=== PATIENT | female | born 1960 | race Caucasian/White ===

== ENCOUNTER 2022-07-26 15:38 | Outpatient (RCR) | payer OTHER, SELFPAY ==
--- NOTE | 2022-07-26 17:18 | MHC.PT.EP ---
[facility] [place] Office [place] Office [place] Office [address] Jenni Maldonado [address] [phone] F: [phone] F: [phone] F: [phone] F: [phone] Physical Therapy Plan of Care Date of Evaluation: Date of Surgery: Diagnosis: RIGHT shoulder pain (MD Dx) RIGHT shoulder impingement (supraspinatus tendon) (PT Dx) Assessment: Patient is a 62 y.o. female who is referred to PT by Mi Zamora MD, with Dx of right shoulder pain. PT diagnosis is right shoulder impingement (supraspinatus tendon). Patient impairments include pain, poor posture, limited ROM, weakness. Patient current functional limitations are pulling up pants, lifting cat litter/groceries, reaching behind back. Patient will benefit from skilled PT to address aforementioned impairments and functional limitations to meet established goals. Frequency and Duration: The patient will be seen 1x/week for 4 weeks Short Term Goals: 2 weeks Patient demonstrates consistency and independence with HEP to self manage symptoms. Mcfp Goals: 4 weeks Patient presents with increased right shoulder flexion 175 degrees to reach to high cabinets. 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 Treatment Plan: Modalities to reduce pain, spasms and effusion. Manual therapy to restore motion and function. Therapeutic exercise to improve strength and flexibility. Neuromuscular re-education for posture and balance. Therapeutic activities to return to functional activities of daily living. Electronically signed by: Jim Wray, PT, DPT Please sign and return to therapist. Thank you for your referral.
--- NOTE | 2022-09-20 15:59 | MHC.PT.DC ---
[facility] [place] Office [place] Office [place] Office [address] Eddi Maldonado 140 [facility] [phone] F: [phone] F: [phone] F: [phone] F: [phone] Physical Therapy Discharge Report Diagnosis: RIGHT shoulder pain (MD Dx) RIGHT shoulder impingement (supraspinatus tendon) (PT Dx) Date of Surgery: Date of Evaluation: 07/26/22 Date of Discharge: 09/20/22 Treatments to Date: 1 Cancellations to Date: No Shows to Date: Discharge Status: Visit Non-compliance Discharge Summary: Sudha did not schedule or attend any FUP visits after initial evaluation. Therefore I cannot determine effectiveness of PT interventions on patient condition at this time. She is discharged from PT. Electronically signed by: Jim Wray, PT, DPT Please sign and return to therapist. Thank you for your referral.
== END 2022-09-20 16:00 | disposition home or self-care (01) ==
LOC: HO.PT 15:38
PROVIDERS: PCP Internal Medicine; Visit Provider Internal Medicine
DX: S49.91XD Unspecified injury of right shoulder and upper arm, subsequent encounter (principal)
CPT/HCPCS: 97110; 97161

== ENCOUNTER 2022-11-03 11:11 | Outpatient (AMB) | payer OTHER, SELFPAY ==
[2022-11-03 11:11] VITALS: BP 136/82; PULSE 90; O2SAT 97; BMI 38.6
--- NOTE | 2022-11-03 11:11 | MHC.PC.OV ---
Vital Signs 11/03/22 11:11 Height 5 ft 3 in Weight 218 lb BMI 38.6 BP 136/82 Blood Pressure Location Rt brachial Position Sitting Pulse 90 Pulse Source Pulse Oximeter Pulse Oximetry (%) 97 Oxygen Delivery Method Room Air Intake Visit Reasons: 3 month follow up Intake Note: Pt is here today for 3 months follow up visit. Allergies prochlorperazine [From Compazine] Allergy (Unknown, Verified 11/03/22 11:11) muscle reaction Medication List - Last Reconciled 11/03/22 by Mi Zamora MD dulaglutide (Trulicity) 1.5 mg (0.5 mL) subcut QWEEK flash glucose sensor (FreeStyle Marky 14 Day Sensor kit) As directed fluoxetine 20 mg PO DAILY lisinopril 20 mg PO DAILY metformin ER 1,000 mg PO BID naratriptan take 1 tab at onset of headache; if no relief may repeat 1 tab after at least 4 hrs; max = 2 tabs/24 hrs PO valacyclovir 500 mg PO BID Tobacco use date assessed: 11/03/22 Dental Screening Dental Screen Date: 11/03/22 Did you have a dental visit in the last 12 months?: Yes Did you have a dental problem in the last 6 months where you did not have access to dental care?: No Was dental information given to patient?: Patient has dentist HPI 3 month follow up HPI Details Patient presents for follow-up of type 2 diabetes and hypertension. Patient started taking Trulicity 2 weeks ago and reports having some nausea and increased heart burn. She has not been monitoring her blood glucose. Patient has been taking lisinopril for hypertension. Patient's older sister who lives in [facility] is dying from ovarian cancer. 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 How often do you have a drink containing alcohol?: Monthly or less 2. How many drinks containing alcohol do you have on a typical day when you are drinking?: 1 or 2 3. How often do you have six or more drinks on one occasion?: Never Total Score: 1 NASIMA-7 AMB Questionnaire NASIMA-7 Date NASIMA - 7 assessed: 06/25/22 Source: Developed by Drs. Marbin Cherry, Judy Van, Elton Li and colleagues, with an educational ben from [employer]. Review of Systems Const All systems reviewed & are unremarkable except as noted in HPI and below Reports no additional complaints Eyes Reports no additional complaints ENT Reports no additional complaints Card Reports no additional complaints Resp Reports no additional complaints GI Reports no additional complaints Physical exam (Primary Care) Vital Signs: Last Vital Signs Pulse 90 11/03/22 11:11 BP 136/82 11/03/22 11:11 Pulse Ox 97 11/03/22 11:11 Oxygen Delivery Method Room Air 11/03/22 11:11 BMI result Body Mass Index 38.6 Tobacco/Smoking Status: Tobacco use Status Tobacco use date assessed 11/03/22 11/03/22 11:12 Patient Tobacco Use Status Never used Tobacco 11/03/22 11:12 e-Cigarette/Vaping Use Never Used 11/03/22 11:12 Thrive Assessment: Date of Thrive Assessment Date Thrive assessed 06/25/22 11/03/22 11:12 Const General: no acute distress HENMT Face and sinus: Yes normal facial exam Eyes General: appearance normal, both eyes and all related structures Resp Effort & Inspection: normal respiratory effort Auscultation: clear to auscultation bilaterally Cardio Rhythm: regular rhythm Heart sounds: S1 normal heart sound present and S2 normal heart sound present GI Inspection: Yes normal to inspection Palpation (GI): Soft to palpation Percussion: Yes normal to percussion Auscultation: normal bowel sounds Assessment and Plan Assessment & Plan (1) HTN (hypertension): Code(s): I10 - Essential (primary) hypertension Plan: Continue lisinopril (2) Diabetes mellitus type 2 in obese: Code(s): E11.69 - Type 2 diabetes mellitus with other specified complication; E66.9 - Obesity, unspecified Plan: Patient will return for fasting labs including A1c. ADA diet regular physical activity discussed with the patient she will continue Trulicity and metformin for now. If nausea and GERD symptoms persist Trulicity dose will be decreased to 0.75 mg weekly. f.u in 3 months Orders: Orders Comprehensive Ophelia. Panel Fast Today - Type 2 diabetes mellitus with other specified complication, E66.9 - Obesity, unspecified, I10 - Essential (primary) hypertension Hemoglobin A1c Today - Type 2 diabetes mellitus with other specified complication, E66.9 - Obesity, unspecified, I10 - Essential (primary) hypertension Lipid Panel Today - Type 2 diabetes mellitus with other specified complication, E66.9 - Obesity, unspecified, I10 - Essential (primary) hypertension Microalbumin, Random (w Creat) Today - Type 2 diabetes mellitus with other specified complication, E66.9 - Obesity, unspecified, I10 - Essential (primary) hypertension Complete Blood Count Auto Diff Today - Type 2 diabetes mellitus with other specified complication, E66.9 - Obesity, unspecified, I10 - Essential (primary) hypertension TSH reflex Free T4 Today - Type 2 diabetes mellitus with other specified complication, E66.9 - Obesity, unspecified, I10 - Essential (primary) hypertension Comprehensive Ophelia. Panel Fast 3 Months - Type 2 diabetes mellitus with other specified complication, E66.9 - Obesity, unspecified, I10 - Essential (primary) hypertension Hemoglobin A1c 3 Months - Type 2 diabetes mellitus with other specified complication, E66.9 - Obesity, unspecified, I10 - Essential (primary) hypertension Microalbumin, Random (w Creat) 3 Months - Type 2 diabetes mellitus with other specified complication, E66.9 - Obesity, unspecified, I10 - Essential (primary) hypertension Coding Level of Care Code Est Pt Level 3 (82877) Diagnoses HTN (hypertension) I10 Diabetes mellitus type 2 in obese ; E66.9
== END 2022-11-03 12:03 | disposition home or self-care (01) ==
PROVIDERS: PCP Internal Medicine; Visit Provider Internal Medicine
DX: I10 Essential (primary) hypertension (principal); E11.69 Type 2 diabetes mellitus with other specified complication; E66.9 Obesity, unspecified; Z68.38 Body mass index [BMI] 38.0-38.9, adult
CPT/HCPCS: 99213

== ENCOUNTER 2023-10-26 11:11 | Outpatient (AMB) | payer OTHER, SELFPAY ==
--- NOTE | 2023-10-26 11:26 | MHC.PC.OV ---
Vital Signs 10/26/23 11:27 Height 5 ft 3 in Weight 222 lb BMI 39.3 BP 136/80 Blood Pressure Location Lt brachial Position Sitting Pulse 95 Pulse Source Pulse Oximeter Pulse Oximetry (%) 98 Oxygen Delivery Method Room Air Intake Visit Reasons: diabetes/f/u Intake Note: Pt is here today for a follow up visit on DM. Allergies prochlorperazine [From Compazine] Allergy (Unknown, Verified 10/26/23 11:28) muscle reaction Medication List - Last Reconciled 10/26/23 by Mi Zamora MD compress.stocking,knee,reg,lrg As directed flash glucose sensor (FreeStyle Marky 14 Day Sensor kit) As directed fluoxetine 20 mg PO DAILY lisinopril 20 mg PO DAILY metformin ER 1,000 mg PO BID naratriptan take 1 tab at onset of headache; if no relief may repeat 1 tab after at least 4 hrs; max = 2 tabs/24 hrs PO valacyclovir 500 mg PO BID Tobacco use date assessed: 10/26/23 Dental Screening Dental Screen Date: 10/26/23 Did you have a dental visit in the last 12 months?: Yes Did you have a dental problem in the last 6 months where you did not have access to dental care?: No Was dental information given to patient?: Patient has dentist HPI diabetes/f/u HPI Details Patient presents for the follow-up of type 2 diabetes hypertension hyperlipidemia. Patient reports bilateral lower extremities discomfort and swelling worse at the end of the day and when walking longer distance. She tried compression knee-highs with good relief. Patient tried Trulicity last year but developed nausea and stomach upset because she started at the high dose of 1.5 mg weekly. 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 1. Little interest or pleasure in doing things: not at all 2. Feeling down, depressed, or hopeless: not at all 3. Trouble falling or staying asleep, or sleeping too much: not at all 4. Feeling tired or having little energy: not at all 5. Poor appetite or overeating: not at all 6. Feeling bad about yourself - or that you are a failure or have let yourself or your family down: not at all 7. Trouble concentrating on things, such as reading the newspaper or watching television: not at all 8. Moving or speaking so slowly that other people could have noticed. Or the opposite - being so fidgety or restless that you have been moving around a lot more than usual: not at all 9. Thoughts that you would be better off or of hurting yourself in some way: not at all Total score: 0 Depression Screening Interpretation: Negative Depression Screening Done: Yes Source: Developed by Drs. Marbin Cherry, Judy Van, Elton Li and colleagues, with an educational ben from [employer]. Thrive Questionnaire Date Thrive assessed: 10/26/23 I am a: Patient What is your living situation today?: I have a steady place to live Within the past 12 months, did the food you bought not last and you didn't have the money to get more?: Never true Within the past 12 months, did you worry whether your food would run out before you got money to buy more?: Often true Do you have trouble paying for medicines?: No Do you have trouble getting transportation to medical appointments?: No Do you have trouble paying your heating and electricity bill?: No Do you have trouble taking care of your child, family member or friend?: No Do you have trouble with day-to-day activities such as bathing, preparing meals, shopping, managing finances, etc.?: No Are you currently unemployed and looking for a job?: No Are you interested in more education?: No Please select the resources that you would like help with: Housing/[facility] Currently or been in a relationship where the following occur: No concerns reported THRIVE Score: 1 AUDIT C Alcohol Use Questionnaire (AUDIT-C) 1. How often do you have a drink containing alcohol?: Monthly or less 2. How many drinks containing alcohol do you have on a typical day when you are drinking?: 1 or 2 3. How often do you have six or more drinks on one occasion?: Never Total Score: 1 NASIMA-7 AMB Questionnaire NASIMA-7 Date NASIMA - 7 assessed: 10/26/23 Feeling nervous, anxious, or on edge: 0 = Not at all Not being able to stop or control worryin = Not at all Worrying too much about different things: 0 = Not at all Trouble relaxin = Not at all Being so restless that it is hard to sit still: 0 = Not at all Becoming easily annoyed or irritable: 0 = Not at all Feeling afraid as if something awful might happen: 0 = Not at all Total NASIMA-7 score (0-4 normal; 5-9 mild; 10-14 moderate; 15-21 severe): 0 Source: Developed by Drs. Marbin Cherry, Judy Van, Elton Li and colleagues, with an educational ben from [employer]. Review of Systems Const All systems reviewed & are unremarkable except as noted in HPI and below Eyes Reports no additional complaints Card Reports no additional complaints Resp Reports no additional complaints GI Reports no additional complaints Reports no additional complaints Physical exam (Primary Care) Vital Signs: Last Vital Signs Pulse 95 10/26/23 11:27 BP 136/80 10/26/23 11:27 Pulse Ox 98 10/26/23 11:27 Oxygen Delivery Method Room Air 10/26/23 11:27 BMI result Body Mass Index 39.3 Tobacco/Smoking Status: Tobacco use Status Tobacco use date assessed 10/26/23 10/26/23 11:34 Patient Tobacco Use Status Never used Tobacco 10/26/23 11:34 e-Cigarette/Vaping Use Never Used 10/26/23 11:28 PHQ-9: PHQ-9 Score PHQ-9: Total score 0 10/26/23 11:34 Depression Screening Interpretation: Negative Thrive Assessment: Date of Thrive Assessment Date Thrive assessed 10/26/23 10/26/23 11:36 Currently or been in a relationship where the following occur: No concerns reported Const General: no acute distress HENMT Head: Yes normal to inspection Eyes General: appearance normal, both eyes and all related structures Resp Effort & Inspection: normal respiratory effort Auscultation: clear to auscultation bilaterally Cardio Rhythm: regular rhythm Heart sounds: S1 normal heart sound present and S2 normal heart sound present GI Inspection: Yes normal to inspection Palpation (GI): Soft to palpation Percussion: Yes normal to percussion Auscultation: normal bowel sounds Extrem Other: There is a full range of motion both ankles no soft tissue swelling erythema or warmth Assessment and Plan Assessment & Plan (1) HTN (hypertension): Code(s): I10 - Essential (primary) hypertension Plan: Continue Lisinopril (2) Diabetes mellitus type 2 in obese: Code(s): E11.69 - Type 2 diabetes mellitus with other specified complication; E66.9 - Obesity, unspecified Plan: ADA diet increase physical activity discussed with the patient she will have A1c checked today and if elevated Trulicity 0.25 mg weekly for the 1st month then increase to 0.5 mg will be started, follow-up in 3 months with a fasting labs before (3) Venous insufficiency of both lower extremities: Code(s): I87.2 - Venous insufficiency (chronic) (peripheral) Plan: Patient will try compression knee-highs Orders: Orders Comprehensive [place]. Panel Fast Today E11.69 - Type 2 diabetes mellitus with other specified complication, E66.9 - Obesity, unspecified, I10 - Essential (primary) hypertension Hemoglobin A1c Today E11.69 - Type 2 diabetes mellitus with other specified complication, E66.9 - Obesity, unspecified, I10 - Essential (primary) hypertension Lipid Panel Today E11.69 - Type 2 diabetes mellitus with other specified complication, E66.9 - Obesity, unspecified, I10 - Essential (primary) hypertension Microalbumin, Random (w Creat) Today E11.69 - Type 2 diabetes mellitus with other specified complication, E66.9 - Obesity, unspecified, I10 - Essential (primary) hypertension Hemoglobin A1c 3 Months E11.69 - Type 2 diabetes mellitus with other specified complication, E66.9 - Obesity, unspecified, I10 - Essential (primary) hypertension Lipid Panel 3 Months E11.69 - Type 2 diabetes mellitus with other specified complication, E66.9 - Obesity, unspecified, I10 - Essential (primary) hypertension Complete Blood Count Auto Diff Today E11.69 - Type 2 diabetes mellitus with other specified complication, E66.9 - Obesity, unspecified, I10 - Essential (primary) hypertension TSH reflex Free T4 Today E11.69 - Type 2 diabetes mellitus with other specified complication, E66.9 - Obesity, unspecified, I10 - Essential (primary) hypertension Comprehensive [place]. Panel Fast 3 Months E11.69 - Type 2 diabetes mellitus with other specified complication, E66.9 - Obesity, unspecified, I10 - Essential (primary) hypertension Medications: New compress.stocking,knee,reg,lrg As directed 2 ea 3RF Discontinued dulaglutide (Trulicity) Discontinued Reason: Duplicate 1.5 mg (0.5 mL) subcut QWEEK 6 mL 3RF Coding Level of Care Code Est Pt Level 4 (23697) Diagnoses HTN (hypertension) I10 Diabetes mellitus type 2 in obese E11.69; E66.9 Venous insufficiency of both lower extremities I87.2
[2023-10-26 11:27] VITALS: BP 136/80; PULSE 95; O2SAT 98; BMI 39.3
== END 2023-10-26 12:03 | disposition home or self-care (01) ==
PROVIDERS: PCP Internal Medicine; Visit Provider Internal Medicine
DX: I10 Essential (primary) hypertension (principal); E11.69 Type 2 diabetes mellitus with other specified complication; Z68.39 Body mass index [BMI] 39.0-39.9, adult; E66.9 Obesity, unspecified; I87.2 Venous insufficiency (chronic) (peripheral)
CPT/HCPCS: 99214

== ENCOUNTER 2023-12-29 07:05 | Outpatient (REF) | payer OTHER, SELFPAY ==
[2023-12-29 10:06] LABS: Estimated Average Glucose 203 mg/dL; Hemoglobin A1C 250.5542 umol/L; Hemoglobin A1c % 8.7 % (<6.0); Total Hemoglobin (HGBA1C) 3497.4618 umol/L
[2023-12-29 10:12] LABS: Alanine Aminotransferase 29 U/L (0-31); Alkaline Phosphatase 63 U/L (39-117); Anion Gap 12 (12-20); Aspartate Amino Transferase 21 U/L (5-31); Bilirubin Total 0.7 mg/dL (0.0-1.0); Blood Urea Nitrogen 12 mg/dL (9-16); Calcium 9.3 mg/dL (8.4-10.2); Carbon Dioxide 28 mmol/L (22-29); Chloride 103 mmol/L (96-108); Cholesterol 180 mg/dL (<200); Estimated Glomerular Filt Rate > 60; Glucose Fasting 192 mg/dL (60-99); HDL Cholesterol 43 mg/dL (>40); LDL Cholesterol Calculated 115 mg/dL (<100); Potassium 4.4 mmol/L (3.3-5.1); Sodium 139 mmol/L (135-145); Total Protein 6.8 g/dL (6.5-8.0); Triglycerides 111 mg/dL (<150)
== END 2023-12-29 07:06 | disposition home or self-care (01) ==
LOC: HO.HMGCLDS 07:05
PROVIDERS: PCP Internal Medicine; Visit Provider Internal Medicine
DX: E11.69 Type 2 diabetes mellitus with other specified complication (principal); E66.9 Obesity, unspecified; I10 Essential (primary) hypertension
CPT/HCPCS: 36415; 80053; 80061; 83036

== ENCOUNTER 2024-05-14 12:25 | Outpatient (AMB) | payer OTHER, SELFPAY ==
[2024-05-14 12:42] VITALS: BP 138/85; PULSE 92; RESP 20; TEMP 37.3; O2SAT 96; BMI 39.0
--- NOTE | 2024-05-14 12:42 | MHC.PC.OV ---
Vital Signs 05/14/24 12:42 Height 5 ft 3 in Weight 220 lb BMI 39.0 BP 138/85 Blood Pressure Location Rt brachial Position Sitting Respiration 20 Pulse 92 Pulse Source Pulse Oximeter Temp 99.2 F Temp Source Oral Pulse Oximetry (%) 96 Oxygen Delivery Method Room Air Intake Visit Reasons: Diabetes F/U Intake Note: Pt is here today for a follow up visit on DM. Allergies prochlorperazine [From Compazine] Allergy (Unknown, Verified 05/14/24 12:45) muscle reaction Medication List - Last Reconciled 05/14/24 by Mi Zamora MD [email or web address],lrg As directed flash glucose sensor ([employer] Marky 14 Day Sensor kit) As directed fluoxetine 20 mg PO DAILY lisinopril 30 mg PO DAILY metformin ER 1,000 mg (2 x 500 mg) PO BID naratriptan take 1 tab at onset of headache; if no relief may repeat 1 tab after at least 4 hrs; max = 2 tabs/24 hrs PO tirzepatide (Mounjaro) 2.5 mg (0.5 mL) subcut QWEEK valacyclovir 500 mg PO BID Tobacco use date assessed: 05/14/24 Dental Screening Dental Screen Date: 05/14/24 Did you have a dental visit in the last 12 months?: Yes Did you have a dental problem in the last 6 months where you did not have access to dental care?: No Was dental information given to patient?: Patient has dentist HPI Diabetes F/U HPI Details Pt presents for f/u HTN and DM 2. Pt tried Mounjaro for 1 month but could not refill because of the insurance. Patient tolerated medication well. She has not been monitoring her blood glucose and has not been compliant with ADA diet. Pt reports recurrent migraine RAMAN. Pt c/o increased stress at work. 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 1. Little interest or pleasure in doing things: not at all 2. Feeling down, depressed, or hopeless: not at all 3. Trouble falling or staying asleep, or sleeping too much: not at all 4. Feeling tired or having little energy: not at all 5. Poor appetite or overeating: not at all 6. Feeling bad about yourself - or that you are a failure or have let yourself or your family down: not at all 7. Trouble concentrating on things, such as reading the newspaper or watching television: not at all 8. Moving or speaking so slowly that other people could have noticed. Or the opposite - being so fidgety or restless that you have been moving around a lot more than usual: not at all 9. Thoughts that you would be better off or of hurting yourself in some way: not at all Total score: 0 Depression Screening Interpretation: Negative Depression Screening Done: Yes 28532 - PHQ-9 Billing: Yes Source: Developed by Drs. Marbin Cherry, Judy Van, Elton Li and colleagues, with an educational ben from [employer]. Thrive Questionnaire Date Thrive assessed: 05/14/24 I am a: Patient What is your living situation today?: I choose not to answer this question Within the past 12 months, did the food you bought not last and you didn't have the money to get more?: I choose not to answer this question Within the past 12 months, did you worry whether your food would run out before you got money to buy more?: I choose not to answer this question Do you have trouble paying for medicines?: I choose not to answer this question Do you have trouble getting transportation to medical appointments?: I choose not to answer this question Do you have trouble paying your heating and electricity bill?: I choose not to answer this question Do you have trouble taking care of your child, family member or friend?: I choose not to answer this question Do you have trouble with day-to-day activities such as bathing, preparing meals, shopping, managing finances, etc.?: I choose not to answer this question Are you currently unemployed and looking for a job?: I choose not to answer this question Are you interested in more education?: I choose not to answer this question Please select the resources that you would like help with: None Currently or been in a relationship where the following occur: I choose not to answer THRIVE Score: 0 AUDIT C Alcohol Use Questionnaire (AUDIT-C) 1. How often do you have a drink containing alcohol?: Monthly or less 2. How many drinks containing alcohol do you have on a typical day when you are drinking?: 1 or 2 3. How often do you have six or more drinks on one occasion?: Never Total Score: 1 NASIMA-7 AMB Questionnaire NASIMA-7 Date NASIMA - 7 assessed: 05/14/24 Feeling nervous, anxious, or on edge: 2 = More than half the days Not being able to stop or control worryin = Not at all Worrying too much about different things: 0 = Not at all Trouble relaxin = Not at all Being so restless that it is hard to sit still: 0 = Not at all Becoming easily annoyed or irritable: 0 = Not at all Feeling afraid as if something awful might happen: 0 = Not at all Total NASIMA-7 score (0-4 normal; 5-9 mild; 10-14 moderate; 15-21 severe): 2 Source: Developed by Drs. Marbin Cherry, Judy Van, Elton Li and colleagues, with an educational ben from [employer]. NASIMA-7 Assessment Billing NASIMA-7 Assessment Tool: NASIMA-7 Assessment 16344 Review of Systems Const All systems reviewed & are unremarkable except as noted in HPI and below Eyes Reports no additional complaints ENT Reports no additional complaints Card Reports no additional complaints Resp Reports no additional complaints GI Reports no additional complaints Reports no additional complaints Physical exam (Primary Care) Vital Signs: Last Vital Signs Temp 99.2 F 05/14/24 12:42 Pulse 92 05/14/24 12:42 Resp 20 05/14/24 12:42 Pulse Ox 96 05/14/24 12:42 Oxygen Delivery Method Room Air 05/14/24 12:42 BMI result Body Mass Index 39.0 Tobacco/Smoking Status: Tobacco use Status Tobacco use date assessed 05/14/24 05/14/24 12:49 Patient Tobacco Use Status Never used Tobacco 05/14/24 12:49 e-Cigarette/Vaping Use Never Used 05/14/24 12:49 PHQ-9: PHQ-9 Score PHQ-9: Total score 0 05/14/24 12:49 Depression Screening Interpretation: Negative Thrive Assessment: Date of Thrive Assessment Date Thrive assessed 05/14/24 05/14/24 12:49 Currently or been in a relationship where the following occur: I choose not to answer Const General: no acute distress HENMT Head: Yes normal to inspection Throat: Yes posterior oropharynx normal Resp Effort & Inspection: normal respiratory effort Auscultation: clear to auscultation bilaterally Cardio Rhythm: regular rhythm Heart sounds: S1 normal heart sound present and S2 normal heart sound present GI Inspection: Yes normal to inspection Palpation (GI): Soft to palpation Percussion: Yes normal to percussion Auscultation: normal bowel sounds Coding Level of Care Code Est Pt Level 4 (55680) Diagnoses Diabetes mellitus type 2 in obese E11.69; E66.9 HTN (hypertension) I10 Migraine headache G43.909 Additional Codes NASIMA-7 Assessment Billing - NASIMA-7 Assessment Tool: NASIMA-7 Assessment 42659 ([id number]) PHQ-9 - 57114 - PHQ-9 Billing: Yes ([id number]) Assessment & Plan Assessment & Plan (1) Diabetes mellitus type 2 in obese: Code(s): E11.69 - Type 2 diabetes mellitus with other specified complication; E66.9 - Obesity, unspecified Category: Medical Plan: Patient refused to have A1c checked today. ADA diet increase physical activity discussed with the patient she will restart Mounjaro and metformin follow-up in 2 months with a fasting labs before (2) HTN (hypertension): Code(s): I10 - Essential (primary) hypertension Category: Medical Plan: Increase lisinopril to 30 mg a day (3) Migraine headache: Code(s): G43.909 - Migraine, unspecified, not intractable, without status migrainosus Category: Medical Plan: Stress management discussed with the patient she was advised not to take naratriptan regularly Orders: Orders Lipid Panel 2 Months E11.69 - Type 2 diabetes mellitus with other specified complication, E66.9 - Obesity, unspecified, I10 - Essential (primary) hypertension Complete Blood Count Auto Diff 2 Months E11.69 - Type 2 diabetes mellitus with other specified complication, E66.9 - Obesity, unspecified, I10 - Essential (primary) hypertension Hemoglobin A1c 2 Months E11.69 - Type 2 diabetes mellitus with other specified complication, E66.9 - Obesity, unspecified, I10 - Essential (primary) hypertension Comprehensive Gibson. Panel Fast 2 Months E11.69 - Type 2 diabetes mellitus with other specified complication, E66.9 - Obesity, unspecified, I10 - Essential (primary) hypertension TSH reflex Free T4 2 Months E11. - Type 2 diabetes mellitus with other specified complication, E66.9 - Obesity, unspecified, I10 - Essential (primary) hypertension Microalbumin, Random (w Creat) 2 Months E11.69 - Type 2 diabetes mellitus with other specified complication, E66.9 - Obesity, unspecified, I10 - Essential (primary) hypertension Medications: New metformin ER 1,000 mg (2 x 500 mg) PO BID 180 tabs 2RF naratriptan take 1 tab at onset of headache; if no relief may repeat 1 tab after at least 4 hrs; max = 2 tabs/24 hrs PO 9 tabs 0RF lisinopril 30 mg PO DAILY 90 tabs 2RF Changed From tirzepatide (Mounjaro) for 4 weeks 2.5 mg (0.5 mL) subcut QWEEK 2 mL 0RF To tirzepatide (Mounjaro) 2.5 mg (0.5 mL) subcut QWEEK 6 mL 1RF Refilled fluoxetine 20 mg PO DAILY 90 tabs 3RF Discontinued lisinopril Discontinued Reason: Doctor's Order 20 mg PO DAILY 90 tabs 1RF
== END 2024-05-14 13:27 | disposition home or self-care (01) ==
PROVIDERS: PCP Internal Medicine; Visit Provider Internal Medicine
DX: E11.69 Type 2 diabetes mellitus with other specified complication (principal); E66.9 Obesity, unspecified; Z68.39 Body mass index [BMI] 39.0-39.9, adult; I10 Essential (primary) hypertension; G43.909 Migraine, unspecified, not intractable, without status migrainosus

== ENCOUNTER → 2024-05-14 12:25 | Outpatient (BNVA) | payer OTHER, SELFPAY | PROVIDERS: PCP Internal Medicine; Visit Provider Internal Medicine | DX: E11.69 Type 2 diabetes mellitus with other specified complication (principal); E66.9 Obesity, unspecified; Z68.39 Body mass index [BMI] 39.0-39.9, adult; I10 Essential (primary) hypertension; G43.909 Migraine, unspecified, not intractable, without status migrainosus; Z79.899 Other long term (current) drug therapy | CPT/HCPCS: 96127 ==

== ENCOUNTER 2024-07-30 07:45 | Outpatient (REF) | payer OTHER, SELFPAY ==
--- OUTSIDE RECORDS SUMMARY | 2024-07-30 07:48 | XMS_ITS | Clinical Summary ---
Author Organization [facility] Address [address] [place] [address] Phone Care Team Providers Care Tube Sizer Operator Name Role Phone Mi Zamora MD Primary Care Provider [phone] Allergies Active Allergy Reactions Criticality Noted Date Comments Prochlorperazine Unknown 07/27/2024 Medications magnesium oxide (MAG-OX) 400 mg magnesium tablet Take 1 tablet (400 mg total) by mouth 2 (two) times a day for 5 days. 10 tablet 07/27/2024 Active Encounters Date Type Department Care Team Description 07/27/2024 1:14 PM EDT - 07/27/2024 5:54 PM EDT [facility] Emergency [address] [place] [address] Rivas Liu MD Dizziness (Primary Dx); Palpitations; Hypomagnesemia; Dehydration Discharge Disposition: Home or Self Care from Last 3 Months Surgical History Surgery Date Site/Laterality Comments TONSILLECTOMY PROCEDURE: HISTORICAL TONSILLECTOMY Medical History Medical History Date Comments Unspecified essential hypertension DX:Unspecified essential hypertension Type II or unspecified type diabetes mellitus with unspecified complication, not stated as uncontrolled DX:Type II or unspecified t ype diabetes mellitus with unspecified complication, not stated as uncontrolled Family History Medical History Relation Name Comments Diabetes Father adult Breast cancer Mother lumpectomy Coronary artery disease Neg Hx Hypertension Neg Hx Relation Name Status Comments Father Mother Social History Tobacco Use Types Packs/Day Years Used Date Smoking Tobacco: Never Alcohol Use Standard Drinks/Week Comments No 0 (1 standard drink = 0.6 oz pur e alcohol) Comments Unknown Sex and Gender Information Value Date Recorded Sex Assigned at Not on file Legal Sex Female 1:49 AM EST Gender Identity Not on file Sexual Orientation Not on file Obstetrics History Last Filed Vital Signs Vital Sign Reading Time Taken Comments Blood Pressure 165/124 07/27/2024 4:55 PM EDT Pulse 111 07/27/2024 4:55 PM EDT Temperature 37.3 ??C (99.1 ??F) 07/27/2024 1:27 PM ED T Respiratory Rate 22 07/27/2024 4:55 PM EDT Oxygen Saturation 100% 07/27/2024 4:55 PM EDT Inhaled Oxygen Concentration - - Weight 113 kg (250 lb) 07/27/2024 1:27 PM EDT Height 157.5 cm (5' 2 ) 07/27/2024 1:27 PM EDT Body Mass Index 45.73 07/27/2024 1:27 PM EDT Plan of Treatment Health Maintenance Due Date Last Done Comments Breast Cancer Screening 1962 Diabetes: Annual Foot Exam 1972 Diabetes: Annual Retina Eye Exam 1972 Cervical Cancer Screening: Pap Smear 1983 Pneumococcal Vaccine: 50+ Years (1 of 1 - PCV) 2012 Zoster Vaccines (1 of 2) 2012 RSV Immunization Adult Patients (1 - Risk 60-74 years 1-dose series) 2022 COVID-19 Vaccine ( season) 2023 03/22/2021, 07/06/2020, 06/08/2020 Cholesterol Screening (Lipid Panel) 07/27/2024 Colorectal Cancer Screening: Stool Based Tests (FOBT/FIT) 07/27/2024 Depression Screening 07/27/2024 Diabetes: Annual Urine Albumin-Creatinine Ratio (uACR) 07/27/2024 Diabetes: Blood Sugar Control Test (HGBA1C) 07/27/2024 HIV Screening 07/27/2024 Hepatitis C Screening 07/27/2024 Social Influencers of Health Screening 07/27/2024 Influenza Vaccine (Season Ended) 2024 01/22/2022, 01/05/2021, 02/01/2020, Additional history exists Diabetes: Annual GFR (Glomerular Filtration Rate) 07/27/2025 07/27/2024 Hypertension/CHF/CAD Annual BMP Blood Test 07/27/2025 07/27/2024 DTaP,Tdap,and Td Vaccines (3 - Td or Tdap) 01/05/2031 01/05/2021, 10/08/2011 HIB Vaccines Aged Out No longer eligi ble based on patient's age to complete this topic HPV Vaccines Aged Out No longer eligi ble based on patient's age to complete this topic Hepatitis A Vaccines Aged Out No long er eligible based on patient's age to complete this topic Hepatitis B Vaccines Aged Out No long er eligible based on patient's age to complete this topic IPV Vaccines Aged Out No longer eligi ble based on patient's age to complete this topic MMR Vaccines Aged Out No longer eligi ble based on patient's age to complete this topic Meningococcal ACWY Vaccine Aged Out N o longer eligible based on patient's age to complete this topic Meningococcal B Vaccine Aged Out No l onger eligible based on patient's age to complete this topic Pneumococcal Vaccine: Pediatrics (0 to 5 Years) and At-Risk Patients (6 to 64 Years) Aged Out No longer eligible based on patient's age to complete this topic RSV Immunization Patients Under 20 months Aged Out No longer eligible based on patient's age to complete this topic Varicella Vaccines Aged Out No longer eligible based on patient's age to complete this topic Procedures Procedure Name Priority Date/Time Associated Diagnosis Comments ECG 12-LEAD STAT 07/27/2024 1:57 PM EDT [id number], RSV, FLU A AND B QUALITATIVE RT-PCR, INTERNAL LAB STAT 07/27/2024 1:47 PM EDT CBC WITH AUTO DIFFERENTIAL STAT 07/27/2024 1:29 PM EDT MAGNESIUM STAT 07/27/2024 1:29 PM EDT BASIC METABOLIC PANEL STAT 07/27/2024 1:29 PM EDT CBC AND DIFFERENTIAL STAT 07/27/2024 1:29 PM EDT from Last 3 Months Results * ECG 12 lead (07/27/2024 1:57 PM EDT) Ventricular Rate ECG 104 BPM GEMUSE Atrial Rate 104 BPM GEMUSE P-R Interval 160 ms GEMUSE QRS Duration 94 ms GEMUSE Q-T Interval 370 ms GEMUSE QTc 486 ms GEMUSE P Wave Cos Cob 23 degrees GEMUSE R Cos [place] 15 degrees GEMUSE T Cos [place] 9 degrees GEMUSE ECG Interpretation Sinus tachycardia Nonspecific ST abnormality Abnormal ECG No previous ECGs available Confirmed by CHERELLE COX ([id number]) on 07/28/2024 2:38:48 PM GEMUSE 07/27/2024 1:57 PM EDT 07/28/2024 2:38 PM EDT us Rivas Liu MD ECG ORDERABLES Final Resul t GEMUSE * [id number], RSV, Influenza A and B qualitative RT-PCR (07/27/2024 1:47 PM EDT) Pathologist [facility] Influenza A PCR Not Detected Not Detected LAB MICROBIOLOGY METHOD 07/27/2024 3:09 PM EDT [facility] Influenza B PCR Not Detected Not Detected LAB MICROBIOLOGY METHOD 07/27/2024 3:09 PM EDT [facility] RSV PCR Not Detected Not Detected LAB MICROBIOLOGY METHOD 07/27/2024 3:09 PM EDT [facility] SARS COV-2 Not Detected Not Detected LAB MICROBIOLOGY METHOD 07/27/2024 3:09 PM EDT [facility] Swab Both anterior nares / Unknown Non-blood Collection / Unknown 07/27/2024 1:47 PM EDT 07/27/2024 1:53 PM EDT Narrative [facility] - 07/27/2024 3:09 PM EDT Disclaimer: ??Testing was performed using the [employer] GeneXpert Xpress SARS-CoV-2 _Flu_RSV PLUS PCR assay. ??The manner in which this information is used to guide patient care is the responsibility of the healthcare provider. ??Results should be correlated with the clinical history, epidemiological data, and other data available to the clinician evaluating the patient. ??Negative results do not preclude infection. ??This test has been authorized by the FDA under an Emergency Use Authorization (EUA). ??This test is only authorized for the duration of time the declaration that circumstances exist justifying the authorization of the emergency use of in vitro diagnostic tests for detection of SARS-CoV-2 virus and/or diagnosis of COVID-19 infection under section 564 (b) (1) of the Act, 21 U.S.C 360bbb-3 (b) (1), unless the authorization is terminated or revoked sooner. ?? Reference Range: Not Detected Fact sheet for Healthcare providers can be found at https://www.fda.gov/media/842816/download. ?? Fact sheet for Healthcare patients can be found at https://www.fda.gov/media/400886/download. Rivas Liu MD LAB MICROBIOLOGY - GENERAL ORDERABLES Final Result [facility] [address] [place] [address], * CBC auto differential (07/27/2024 1:29 PM EDT) WBC 5.8 4.8 - 10.8 K/mcL LAB HEMETOLOGY METHOD 07/27/2024 2:00 PM EDT [facility] RBC 4.40 3.80 - 4.80 M/mcL LAB HEMETOLOGY METHOD 07/27/2024 2:00 PM EDT [facility] Hemoglobin 12.7 11.5 - 16.0 g/dL LAB HEMETOLOGY METHOD 07/27/2024 2:00 PM EDT [facility] Hematocrit 38.3 35.0 - 47.0 % LAB HEMETOLOGY METHOD 07/27/2024 2:00 PM EDT [facility] MCV 87.0 79.0 - 98.0 FL LAB HEMETOLOGY METHOD 07/27/2024 2:00 PM EDT [facility] MCH 28.9 27.0 - 32.0 pcg LAB HEMETOLOGY METHOD 07/27/2024 2:00 PM [facility] MCHC 33.2 32.0 - 37.0 g/dL LAB HEMETOLOGY METHOD [facility]24 [facility] RDW 12.7 11.0 - 15.0 % LAB HEMETOLOGY METHOD 07/27/2024 2:00 PM [facility] Platelets 367 130 - 400 K/mcL LAB HEMETOLOGY METHOD 07/27/2024 2:00 PM [facility] MPV 9.4 7.0 - 11.0 FL LAB HEMETOLOGY METHOD 07/27/2024 2:00 PM [facility] NRBC 0.0 <1.0 % LAB HEMETOLOGY METHOD 07/27/2024 2:00 PM [facility] NRBC Absolute 0.00 <0.10 K/mcL LAB HEMETOLOGY METHOD 07/27/2024 2:00 PM [facility] Neutrophils Relative 53.0 % LAB HEMETOLOGY METHOD 07/27/2024 2:00 PM [facility] Lymphocytes Relative 31.7 % LAB HEMETOLOGY METHOD 07/27/2024 2:00 PM [facility] Monocytes Relative 11.0 % LAB HEMETOLOGY METHOD 07/27/2024 2:00 PM [facility] Eosinophils Relative 3.1 % LAB HEMETOLOGY METHOD 07/27/2024 2:00 PM [facility] Basophils Relative 0.9 % LAB HEMETOLOGY METHOD 07/27/2024 2:00 PM [facility] Immature Granulocytes Relative 0.3 % LAB HEMETOLOGY METHOD 07/27/2024 2:00 PM EDT [facility] Neutrophils Absolute 3.07 1.50 - 7.00 K/[facility] LAB HEMETOLOGY METHOD 07/27/2024 2:00 PM EDT [facility] Lymphocytes Absolute 1.84 1.00 - 5.00 K/mcL LAB HEMETOLOGY METHOD 07/27/2024 2:00 PM EDT [facility] Monocytes Absolute 0.64 0.20 - 1.00 K/[facility] LAB HEMETOLOGY METHOD 07/27/2024 2:00 PM EDT [facility] Eosinophils Absolute 0.18 0.00 - 0.50 K/[facility] LAB HEMETOLOGY METHOD 07/27/2024 2:00 PM EDT [facility] Basophils Absolute 0.05 0.00 - 0.20 K/mcL LAB HEMETOLOGY METHOD 07/27/2024 2:00 PM EDT [facility] Immature Granulocytes Absolute 0.02 0.00 - 0.03 K/mcL LAB HEMETOLOGY METHOD 07/27/2024 2:00 PM EDT [facility] Blood Venous blood specimen / Unknown Venipuncture / Unknown 07/27/2024 1:29 PM EDT 07/27/2024 1:54 PM EDT us Rivas Liu MD LAB BLOOD ORDERABLES Final Result [facility] [address] [place] [address], * (ABNORMAL) Magnesium (07/27/2024 1:29 PM EDT) Magnesium 1.5(L) 1.9 - 2.6 mg/dL LAB CHEMISTRY METHOD 07/27/2024 2:21 PM EDT [facility] Blood Venous blood specimen / Unknown Venipuncture / Unknown 07/27/2024 1:29 PM EDT 07/27/2024 1:54 PM EDT Rivas Liu MD LAB BLOOD ORDERABLES Final Result [facility] [address] [place] [address], * (ABNORMAL) Basic metabolic panel (07/27/2024 1:29 PM EDT) Sodium 133 133 - 145 mmol/L LAB CHEMISTRY METHOD 07/27/2024 2:23 PM [facility] Potassium 4.1 3.5 - 5.5 mmol/L LAB CHEMISTRY METHOD 07/27/2024 2:23 PM [facility] Chloride 100 96 - 110 mmol/L LAB CHEMISTRY METHOD 07/27/2024 2:23 PM [facility] CO2 23 21 - 32 mmol/L LAB CHEMISTRY METHOD 07/27/2024 2:23 PM [facility] Anion Gap 10 3 - 11 LAB CHEMISTRY METHOD 07/27/2024 2:23 PM [facility] Glucose 342(H) 70 - 100 mg/dL LAB CHEMISTRY METHOD 07/27/2024 2:23 PM [facility] BUN 12 5 - 25 mg/dL LAB CHEMISTRY METHOD 07/27/2024 2:23 PM [facility] Creatinine 0.56 0.50 - 1.10 mg/dL LAB CHEMISTRY METHOD 07/27/2024 2:23 PM [facility] eGFR 103 >=60 mL/min/1. 73m2 LAB CHEMISTRY METHOD 07/27/2024 2:23 PM [facility] Comment:Calculation based on the??Chronic Kidney Disease Epidemiology Collaboration (CKD-EPI) equation refit??without adjustment for race. BUN/Creatinine Ratio 21.4 LAB CHEMISTRY METHOD 07/27/2024 2:23 PM EDT [facility] Calcium 9.2 8.5 - 10.5 mg/dL LAB CHEMISTRY METHOD 07/27/2024 2:23 PM EDT [facility] Blood Venous blood specimen / Unknown Venipuncture / Unknown 07/27/2024 1:29 PM EDT 07/27/2024 1:54 PM EDT us Rivas Liu MD LAB BLOOD ORDERABLES Final Result [facility] [address] [place] [address], from Last 3 Months Insurance [facility] [employer] Care Teams Tube Sizer Operator Relationship Specialty Start Date End Date Mi Zamora MD [address] [place] [id number] PCP - General Internal Medicine 07/27/24
--- OUTSIDE RECORDS SUMMARY | 2024-07-30 07:48 | XMS_ITS | Encounter Summary ---
Author Organization [facility] Address [address] [place] [address] Care Team Providers Care Learning Center Coordinator Name Role Phone Mi Zamora MD Primary Care Provider [phone] Reason for Visit * Reason Comments Dizziness Flu sx for 3 days Encounter Details Date Type Department Care Team (Late st Contact Info) Description 07/27/2024 1:14 PM EDT - 07/27/2024 5:54 PM EDT Emergency [facility] Emergency [address] [place] [phone] Rivas Liu MD [address] [address] Dizziness (Primary Dx); Palpitations; Hypomagnesemia; Dehydration Discharge Disposition: Home or Self Care Social History Tobacco Use Types Packs/Day Years Used Date Smoking Tobacco: Never Alcohol Use Standard Drinks/Week Comments No 0 (1 standard drink = 0.6 oz pur e alcohol) Comments Unknown Sex and Gender Information Value Date Recorded Sex Assigned at Not on file Legal Sex Female 1:49 AM EST Gender Identity Not on file Sexual Orientation Not on file documented as of this encounter Last Filed Vital Signs Vital Sign Reading [...] Mass Index 45.73 07/27/2024 1:27 PM EDT documented in this encounter Functional Status * Are you deaf or do you have serious difficulty hearing? Answer Date of Assessment Author No 07/27/2024 2:07 PM EDT Igor Whittaker RN * Are you blind or do you have serious difficulty seeing, even when wearing glasses? Answer Date of Assessment Author No 07/27/2024 2:07 PM EDT Igor Whittaker RN * Do you have serious difficulty walking or climbing stairs? Answer Date of Assessment Author No 07/27/2024 2:07 PM EDT Igor Whittaker RN * Do you have serious difficulty dressing or bathing? Answer Date of Assessment Author No 07/27/2024 2:07 PM EDT Igor Whittaker RN * Because of a physical, mental, or emotional condition, do you have serious difficulty doing errandsalone such as visiting the doctor? Answer Date of Assessment Author No 07/27/2024 2:07 PM EDT Igor Whittaker RN documented as of this encounter Mental Status * Because of a physical, mental, or emotional condition, do you have serious difficulty concentrating, remembering, or making decisions? (5 years old or older) Answer Entry Date Author No 07/27/2024 2:07 PM EDT Igor Whittaker RN documented in this encounter Discharge Summaries * Nando Whittaker RN - 07/27/2024 5:39 PM EDT Pt seen and cleared for d/c by ED provider, d/c instructions reviewed. Rx'd medication education provided, all questions answered. Pt seen ambulating out of department with ease. documented in this encounter Discharge Instructions * Discharge Instructions* Rivas Liu MD - 07/27/2024 5:07 PM EDT Please follow-up with your primary doctor for retest of your magnesium. Follow- up with the results of the Holter with your primary and Dr. Orlando. * Attachments The following attachments cannot be sent through Care Everywhere. * Supraventricular Tachycardia (Gabonese) * Holter Monitoring (Gabonese) * Oral Rehydration (Gabonese) * Magnesium Test (Gabonese) documented in this encounter Medications at Time of Discharge magnesium oxide (MAG-OX) 400 mg magnesium tablet Take 1 tablet (400 mg total) by mouth 2 (two) times a day for 5 days. 10 tablet 07/27/2024 08/01/2024 documented as of this encounter Ordered Prescriptions Prescription Sig Dispense Quantity Refills Last Filled Start Date End Date magnesium oxide (MAG-OX) 400 mg magnesium tablet Take 1 tablet (400 mg total) by mouth 2 (two) times a day for 5 days. 10 tablet 07/27/2024 08/01/2024 documented in this encounter Discharge Disposition Disposition Code Departure Means Destination Comment s Home or Self Care documented in this encounter Progress Notes * Sue Tom RN - 07/27/2024 1:16 PM EDT Pt biba from work c/o generalizes lightheadedness, headache, fatigue, flu like sx for the past few days. Denies CP for ems documented in this encounter Miscellaneous Notes * ED Bed Hold Note - Lucila Guzman RN - 07/27/2024 1:14 PM EDT Bed: [id number]-[id number] Expected date: Expected time: Means of arrival: Comments: 83 F worsening SOB documented in this encounter Plan of Treatment Pending Results Name Type Priority Associated Diagnoses Date /Time Cardiac holter monitor (<= 48 hours) Cardiac Services Routine 07/27/2024 4:05 PM EDT Scheduled Orders Name Type Priority Associated Diagnoses Orde r Schedule Cardiac holter monitor (<= 48 hours) Cardiac Services Routine Once for 1 Occurrences starting 07/27/2024 until 07/27/2024 documented as of this encounter Procedures Procedure Name Priority Date/Time Associated Diagnosis Comments ECG 12-LEAD STAT 07/27/2024 1:57 PM EDT [id number], RSV, FLU A AND B QUALITATIVE RT-PCR, INTERNAL LAB STAT 07/27/2024 1:47 PM EDT CBC WITH AUTO DIFFERENTIAL STAT 07/27/2024 1:29 PM EDT CBC AND DIFFERENTIAL STAT 07/27/2024 1:29 PM EDT MAGNESIUM STAT 07/27/2024 1:29 PM EDT BASIC METABOLIC PANEL STAT 07/27/2024 1:29 PM EDT documented in this encounter Results * ECG 12 lead (07/27/2024 1:57 PM EDT) Ventricular Rate ECG 104 BPM GEMUSE Atrial Rate 104 BPM GEMUSE P-R Interval 160 ms GEMUSE QRS Duration 94 ms GEMUSE Q-T Interval 370 ms GEMUSE QTc 486 ms GEMUSE P Wave [place] 23 degrees GEMUSE R [place] 15 degrees GEMUSE T [place] 9 degrees GEMUSE ECG Interpretation Sinus tachycardia Nonspecific ST abnormality Abnormal ECG No previous ECGs available Confirmed by CHERELLE COX ([id number]) on 07/28/2024 2:38:48 PM GEMUSE 07/27/2024 1:57 PM EDT 07/28/2024 2:38 PM EDT us Rivas Liu MD ECG ORDERABLES Final Resul t GEMUSE * [id number], RSV, Influenza A and B qualitative RT-PCR (07/27/2024 1:47 PM EDT) Influenza A PCR Not Detected Not Detected LAB MICROBIOLOGY METHOD 07/27/2024 3:09 PM EDT [facility] Influenza B PCR Not Detected Not Detected LAB MICROBIOLOGY METHOD 07/27/2024 3:09 PM EDT [facility] RSV PCR Not Detected Not Detected LAB MICROBIOLOGY METHOD 07/27/2024 3:09 PM EDT [facility] SARS COV-2 Not Detected Not Detected LAB MICROBIOLOGY METHOD 07/27/2024 3:09 PM EDT [facility] Swab Both anterior nares / Unknown Non-blood Collection / Unknown 07/27/2024 1:47 PM EDT 07/27/2024 1:53 PM EDT Narrative [facility] - 07/27/2024 3:09 PM EDT Disclaimer: ??Testing was performed using the [employer] GeneXpert Xpress SARS-CoV-2 _Flu_RSV PLUS PCR assay. [...] for Healthcare providers can be found at https://www.fda.gov/media/508060/download. ?? Fact sheet for Healthcare patients can be found at https://www.fda.gov/media/325874/download. Rivas Liu MD LAB MICROBIOLOGY - GENERAL ORDERABLES Final Result [facility] [address] [place] [address], [place] [phone] * CBC auto differential (07/27/2024 1:29 PM EDT) [facility] WBC 5.8 4.8 - 10.8 K/mcL LAB HEMETOLOGY METHOD 07/27/2024 2:00 PM EDT [facility] RBC 4.40 3.80 - 4.80 M/mcL LAB HEMETOLOGY METHOD 07/27/2024 2:00 PM EDT [facility] Hemoglobin 12.7 11.5 - 16.0 g/dL LAB [facility]OLOGY [facility] Hematocrit 38.3 35.0 - 47.0 % LAB HEMETOLOGY METHOD 07/27/2024 2:00 PM [facility] MCV 87.0 79.0 - 98.0 FL LAB HEMETOLOGY METHOD [facility]/27[facility]2024 2[facility] MCH 28.9 27.0 - 32.0 pcg LAB HEMETOLOGY METHOD 07/27/2024 2:00 PM [facility] MCHC 33.2 32.0 - 37.0 g/dL LAB HEMETOLOGY METHOD 07/27/2024 2:00 PM [facility] RDW 12.7 11.0 - 15.0 % LAB HEMETOLOGY METHOD 07/27/2024 2:00 PM [facility] Platelets 367 130 - 400 K/mcL LAB HEMETOLOGY METHOD 07/27/2024 2[facility] MPV 9.4 7.0 - 11.0 FL LAB HEMETOLOGY METHOD 07/27/2024 2:[facility] NRBC 0.0 <1.0 % LAB HEMETOLOGY METHOD 07/27/2024 2:00 PM [facility] NRBC Absolute 0.00 <0.10 K/mcL LAB HEMETOLOGY METHOD 07/27/2024 2:00 PM [facility] Neutrophils Relative 53.0 % LAB HEMETOLOGY METHOD 07/27/2024 2:00 PM [facility] Lymphocytes Relative 31.7 % LAB HEMETOLOGY METHOD 07/27/2024 2:00 PM [facility] Monocytes Relative 11.0 % LAB HEMETOLOGY METHOD 07/27/2024 2:00 PM [facility] Eosinophils Relative 3.1 % LAB HEMETOLOGY METHOD 07/27/2024 2:00 PM [facility] Basophils Relative 0.9 % LAB HEMETOLOGY METHOD 07/27/2024 2:00 PM [facility] Immature Granulocytes Relative 0.3 % LAB HEMETOLOGY METHOD 07/27/2024 2:00 PM [facility] Neutrophils Absolute 3.07 1.50 - 7.00 K/mcL LAB HEMETOLOGY METHOD 07/27/2024 2:00 PM [facility] Lymphocytes Absolute 1.84 1.00 - 5.00 K/mcL LAB HEMETOLOGY METHOD 07/27/2024 2:00 PM [facility] Monocytes Absolute 0.64 0.20 - 1.00 K/mcL LAB HEMETOLOGY METHOD 07/27/2024 2:00 PM [facility] Eosinophils Absolute 0.18 0.00 - 0.50 K/mcL LAB HEMETOLOGY METHOD 07/27/2024 2:00 PM [facility] Basophils Absolute 0.05 0.00 - 0.20 K/mcL LAB HEMETOLOGY METHOD 07/27/2024 2:00 PM [facility] Immature Granulocytes Absolute 0.02 0.00 - 0.03 K/mcL LAB HEMETOLOGY METHOD 07/27/2024 2:00 PM EDT [facility] Blood Venous blood specimen / Unknown Venipuncture / Unknown 07/27/2024 1:29 PM EDT 07/27/2024 1:54 PM EDT Rivas Liu MD LAB BLOOD ORDERABLES Final Result Performing Organization Address [facility]/ZIP Co de Phone Number [facility] [address] [place] [address], [place] [phone] * (ABNORMAL) Magnesium (07/27/2024 1:29 PM EDT) Pathologist [facility] Magnesium 1.5(L) 1.9 - 2.6 mg/dL LAB CHEMISTRY METHOD 07/27/2024 2:21 PM EDT [facility] Blood Venous blood specimen / Unknown Venipuncture / Unknown 07/27/2024 1:29 PM EDT 07/27/2024 1:54 PM EDT Rivas Liu MD LAB BLOOD ORDERABLES Final Result Performing Organization Address [facility] de Phone Number [facility] [address] [place] [address], [place] [phone] * (ABNORMAL) Basic metabolic panel (07/27/2024 1:29 PM EDT) Sodium 133 133 - 145 mmol/L LAB CHEMISTRY METHOD 07/27/2024 2:23 PM EDT [facility] Potassium 4.1 3.5 - 5.5 mmol/L LAB CHEMISTRY METHOD 07/27/2024 2:23 PM EDT [facility] Chloride 100 96 - 110 mmol/L LAB CHEMISTRY METHOD 07/27/2024 2:23 PM EDT [facility] CO2 23 21 - 32 mmol/L LAB CHEMISTRY METHOD 07/27[facility]2024 2:[facility] Anion Gap 10 3 - 11 LAB CHEMISTRY METHOD 07/27/2024 2:[facility] Glucose 342(H) 70 - 100 mg/dL LAB CHEMISTRY METHOD 07/27/2024 2:23 PM [facility] BUN 12 5 - 25 mg/dL LAB CHEMISTRY METHOD 07/27/2024 2:23 PM T [facility] Creatinine 0.56 0.50 - 1.10 mg/dL LAB CHEMISTRY METHOD 07/27/2024 2:23 PM EDT [facility] eGFR 103 >=60 mL/min/1. 73m2 LAB CHEMISTRY METHOD 07/27/2024 2:23 PM T [facility] Comment:Calculation based on the??Chronic Kidney Disease Epidemiology Collaboration (CKD-EPI) equation refit??without adjustment for race. BUN/Creatinine Ratio 21.4 LAB CHEMISTRY METHOD 07/27/2024 2:23 PM T [facility] Calcium 9.2 8.5 - 10.5 mg/dL LAB CHEMISTRY METHOD 07/27/2024 2:23 PM [facility] Blood Venous blood specimen / Unknown Venipuncture / Unknown 07/27/2024 1:29 PM EDT 07/27/2024 1:54 PM EDT Rivas Liu MD LAB BLOOD ORDERABLES Final Result [facility] [address] [place] [address], documented in this encounter Visit Diagnoses Diagnosis Dizziness- Primary Dizziness and giddiness Palpitations Hypomagnesemia Disorders of magnesium metabolism Dehydration documented in this encounter Administered Medications Inactive Administered Medications - up to 3 most recent administrations Medication Order MAR Action Action Date Dose Rate Site magnesium sulfate 2 gram/50 mL (4 %) IVPB 2 g 2 g, intravenous, at 25 mL/hr, Administer over 2 Hours, Once, On Tue07/27/24 at 1518, For 1 dose New Bag 07/27/2024 3:27 PM EDT 2 g 25 mL/hr sodium chloride 0.9 % bolus 1,000 mL 1,000 mL, intravenous, at 1,000 mL/hr, Administer over 1 Hours, Once, On Tue07/27/24 at 1519, For 1 dose New Bag 07/27/2024 3:20 PM EDT 1,000 mL 1000 mL/hr documented in this encounter Active and Recently Administered Medications Times are shown in EDT. Scheduled Medication Order 07/25/2024 07/26/2024 07/27/2024 magnesium sulfate 2 gram/50 mL (4 %) IVPB 2 g (COMPLETED) 2 g, intravenous, at 25 mL/hr, Administer over 2 Hours, Once, On Tue07/27/24 at 1518, For 1 dose 1527 (New Bag - Prov ider: Nando Whittaker RN)1733 (Stopped - Provider: Nando Whittaker RN) sodium chloride 0.9 % bolus 1,000 mL (COMPLETED) 1,000 mL, intravenous, at 1,000 mL/hr, Administer over 1 Hours, Once, On Tue07/27/24 at 1519, For 1 dose 1520 (New Bag - Prov ider: Nando Whittaker RN)1733 (Stopped - Provider: Nando Whittaker, MELINDA) documented in this encounter Orders Nursing Count Last Ordered Date First Orde red Date ORTHOSTATIC BLOOD PRESSURE 1 07/27/2024 VITAL SIGNS 1 07/27/2024 documented in this encounter Additional Health Concerns Infection Onset Date Last Indicated Resolved Time Respiratory Rule-Out 07/27/2024 07/27/2024 025 3:09 PM EDT COVID-19 Rule-Out 07/27/2024 07/27/2024 07/27/2024 3:09 PM EDT documented as of this encounter Care Teams Learning Center Coordinator Relationship Specialty Start Date End Date Mi Zamora MD [address] [place] [address] PCP - General Internal Medicine 07/27/24 documented as of this encounter
[2024-07-30 10:16] LABS: MANUAL DIFF FLAG NO
[2024-07-30 10:28] LABS: Basophils Percent Auto 0.4 % (0-2); Eosinophils Absolute Auto 0.3 X10*3/uL (0.0-0.4); Eosinophils Percent Auto 6.2 % (0-4); Hematocrit 40.8 % (37.0-47.0); Hemoglobin 13.7 g/dl (12.0-16.0); Imm Gran Abs Auto 0.01 X10*3/uL (0.00-0.03); Imm Gran Pct Auto 0.2 % (0.0-0.4); Lymphocytes Absolute Auto 2.7 X10*3/uL (1.2-4.9); Lymphocytes Percent Auto 50.9 % (20-40); Mean Corpuscular HGB Conc 33.6 g/dl (31.0-35.0); Mean Corpuscular Hemoglobin 28.9 pg (27.0-33.0); Mean Corpuscular Volume 86.1 fL (80.0-98.0); Mean Platelet Volume 9.5 fL (9.4-12.3); Monocytes Absolute Auto 0.4 X10*3/uL (0.1-1.2); Monocytes Percent Auto 6.6 % (2-11); Neutrophils Absolute Auto 1.9 x10*3/uL (2.0-8.3); Neutrophils Percent Auto 35.7 % (45-73); Platelet Count 434 X10*3/uL (160-400); Red Blood Count 4.74 X10*6/uL (4.20-5.50); Red Cell Distribution Width 12.8 % (11.0-16.0); White Blood Count 5.3 X10*3/uL (4.8-10.8)
[2024-07-30 10:35] LABS: Estimated Average Glucose 232 mg/dL; Hemoglobin A1c % 9.7 % (<6.0); Total Hemoglobin (HGBA1C) 3567.4038 umol/L
[2024-07-30 10:51] LABS: Alanine Aminotransferase 26 U/L (0-31); Albumin Level 4.1 g/dL (3.5-5.0); Alkaline Phosphatase 70 U/L (39-117); Anion Gap 15 (12-20); Aspartate Amino Transferase 22 U/L (5-31); Bilirubin Total 0.6 mg/dL (0.0-1.0); Blood Urea Nitrogen 12 mg/dL (9-16); Calcium 8.9 mg/dL (8.4-10.2); Carbon Dioxide 26 mmol/L (22-29); Chloride 100 mmol/L (96-108); Cholesterol 174 mg/dL (<200); Estimated Glomerular Filt Rate > 60; Glucose Fasting 230 mg/dL (60-99); HDL Cholesterol 42 mg/dL (>40); LDL Cholesterol Calculated 110 mg/dL (<100); Potassium 4.6 mmol/L (3.3-5.1); Sodium 136 mmol/L (135-145); Total Protein 6.9 g/dL (6.5-8.0); Triglycerides 112 mg/dL (<150)
[2024-07-30 11:08] LABS: TSH reflex Free T4 2.47 uIU/mL (0.32-4.0)
[2024-07-30 11:17] LABS: Creatinine Urine 118.56 mg/dL
[2024-08-01 14:52] LABS: Magnesium 1.7 mg/dL (1.6-2.6)
== END 2024-07-30 07:46 | disposition home or self-care (01) ==
LOC: HO.HMGCLDS 07:45
PROVIDERS: PCP Internal Medicine; Visit Provider Internal Medicine
DX: I10 Essential (primary) hypertension (principal); E11.69 Type 2 diabetes mellitus with other specified complication; E66.9 Obesity, unspecified; E83.42 Hypomagnesemia
CPT/HCPCS: 36415; 80053; 80061; 82043; 82570; 83036; 83735; 84443; 85025

== ENCOUNTER 2024-08-01 13:21 | Outpatient (AMB) | payer OTHER, SELFPAY ==
[2024-08-01 13:45] VITALS: BP 145/95; PULSE 96; RESP 20; TEMP 37.2; O2SAT 98; BMI 39.3
--- NOTE | 2024-08-01 13:45 | MHC.PC.OV ---
Vital Signs 08/01/24 13:45 Height 5 ft 3 in Weight 222 lb BMI 39.3 BP 145/95 H Blood Pressure Location Rt brachial Position Sitting Respiration 20 Pulse 96 Pulse Source Pulse Oximeter Temp 98.9 F Temp Source Oral Pulse Oximetry (%) 98 Oxygen Delivery Method Room Air Intake Visit Reasons: Elevated BP Intake Note: Pt is here today for a sick visit. Pt c/o elevated BP and HR. Allergies prochlorperazine [From Compazine] Allergy (Unknown, Verified 08/01/24 14:08) muscle reaction Medication List - Last Reconciled 08/01/24 by Mi Zamora MD compress.[email or web address],knee,reg,lrg As directed flash glucose sensor (LiquidStyle Marky 14 Day Sensor kit) As directed fluoxetine 20 mg PO DAILY lisinopril 30 mg PO DAILY metformin ER 1,000 mg (2 x 500 mg) PO BID naratriptan take 1 tab at onset of headache; if no relief may repeat 1 tab after at least 4 hrs; max = 2 tabs/24 hrs PO tirzepatide (Mounjaro) 2.5 mg (0.5 mL) subcut QWEEK valacyclovir 500 mg PO BID Tobacco use date assessed: 08/01/24 Dental Screening Dental Screen Date: 05/14/24 HPI Elevated BP HPI Details Pt presents for the follow-up of ER visit to [facility] with a complaint of elevated blood pressure and heart rate. She had a blood work and EKG done. Patient used to follow-up with a strip feeder for SVT and would like to be referred to [facility] Cardiology. 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 patient reports not being compliant with ADA diet eating sweets as a way of coping with her increased stress. She has not been monitor her blood glucose regularly. Patient has stopped taking Mounjaro 2 months ago but is willing to restarted. She has been taking metformin and lisinopril 30 mg regularly. patient denies chest pain PND orthopnea diaphoresis. [facility] Medical History (Updated 08/01/24 @ 15:31 by Mi Zamora MD) Diabetes mellitus type 2 in obese HTN (hypertension) Tachycardia Surgical History Hx of tonsillectomy Family History Father Diabetes mellitus Mother Breast cancer Mental health disorder Substance use disorder Sister Ovarian cancer Social History Household Members Other:: signing teacher, sister is Housing: House Patient Tobacco Use Status: Never used Tobacco e-Cigarette/Vaping Use: Never Used service: No Current occupational status: employed Cognitive needs: No Hearing needs: No Vision needs: Yes Questionnaire PHQ-9 Over the last 2 weeks, how often have you been bothered by any of the following problems? 1. Little interest or pleasure in doing things: not at all 2. Feeling down, depressed, or hopeless: not at all 3. Trouble falling or staying asleep, or sleeping too much: not at all 4. Feeling tired or having little energy: not at all 5. Poor appetite or overeating: not at all 6. Feeling bad about yourself - or that you are a failure or have let yourself or your family down: not at all 7. Trouble concentrating on things, such as reading the newspaper or watching television: not at all 8. Moving or speaking so slowly that other people could have noticed. Or the opposite - being so fidgety or restless that you have been moving around a lot more than usual: not at all 9. Thoughts that you would be better off or of hurting yourself in some way: not at all Total score: 0 Depression Screening Interpretation: Negative Depression Screening Done: Yes 54624 - PHQ-9 Billing: Yes Source: Developed by Drs. Marbin Cherry, Judy Van, Elton iL and colleagues, with an educational ben from [employer]. Thrive Questionnaire Date Thrive assessed: 05/13/24 I am a: Patient What is your living situation today?: I choose not to answer this question Within the past 12 months, did the food you bought not last and you didn't have the money to get more?: I choose not to answer this question Within the past 12 months, did you worry whether your food would run out before you got money to buy more?: I choose not to answer this question Do you have trouble paying for medicines?: I choose not to answer this question Do you have trouble getting transportation to medical appointments?: I choose not to answer this question Do you have trouble paying your heating and electricity bill?: I choose not to answer this question Do you have trouble taking care of your child, family member or friend?: I choose not to answer this question Do you have trouble with day-to-day activities such as bathing, preparing meals, shopping, managing finances, etc.?: I choose not to answer this question Are you currently unemployed and looking for a job?: I choose not to answer this question Are you interested in more education?: I choose not to answer this question Please select the resources that you would like help with: None Currently or been in a relationship where the following occur: I choose not to answer THRIVE Score: 0 NASIMA-7 AMB Questionnaire NASIMA-7 Date NASIMA - 7 assessed: 05/14/24 Source: Developed by Drs. Marbin Cherry, Judy Van, Elton Li and colleagues, with an educational ben from [employer]. Review of Systems Const All systems reviewed & are unremarkable except as noted in HPI and below Eyes Reports no additional complaints ENT Reports no additional complaints Card Reports no additional complaints Resp Reports no additional complaints GI Reports no additional complaints Reports no additional complaints Physical exam (Primary Care) Vital Signs: Last Vital Signs Temp 98.9 F 08/01/24 13:45 Pulse 96 08/01/24 13:45 Resp 20 08/01/24 13:45 Pulse Ox 98 08/01/24 13:45 Oxygen Delivery Method Room Air 08/01/24 13:45 BMI result Body Mass Index 39.3 Tobacco/Smoking Status: Tobacco use Status Tobacco use date assessed 08/01/24 08/01/24 14:13 Patient Tobacco Use Status Never used Tobacco 08/01/24 13:46 e-Cigarette/Vaping Use Never Used 08/01/24 13:46 PHQ-9: PHQ-9 Score PHQ-9: Total score 0 08/01/24 14:18 Depression Screening Interpretation: Negative Thrive Assessment: Date of Thrive Assessment Date Thrive assessed 05/13/24 08/01/24 13:46 Currently or been in a relationship where the following occur: I choose not to answer Const General: no acute distress HENMT Head: Yes normal to inspection Neck Neck: Yes supple Resp Effort & Inspection: normal respiratory effort Auscultation: clear to auscultation bilaterally Cardio Rhythm: regular rhythm Heart sounds: S1 normal heart sound present and S2 normal heart sound present GI Inspection: Yes normal to inspection Palpation (GI): Soft to palpation Percussion: Yes normal to percussion Coding Level of Care Code Est Pt Level 4 (02251) Diagnoses Tachycardia R00.0 Hypomagnesemia E83.42 HTN (hypertension) I10 Diabetes mellitus type 2 in obese E11.69; E66.9 Anxiety F41.9 Additional Codes PHQ-9 - 61183 - PHQ-9 Billing: Yes ([id number]) Assessment & Plan Assessment & Plan (1) Tachycardia: Comment: hx of SVT, f/u by PVC Code(s): R00.0 - Tachycardia, unspecified Category: Medical Plan: patient will follow-up with the Cardiology. EKG today showed normal sinus rhythm heart rate of 92 nonspecific T-wave changes in 3 AVF. start bisoprolol 5 mg a day follow-up in 2 weeks (2) Hypomagnesemia: Code(s): E83.42 - Hypomagnesemia Category: Medical Plan: check magnesium level (3) HTN (hypertension): Code(s): I10 - Essential (primary) hypertension Category: Medical Plan: increase lisinopril to 40 mg a day and add bisoprolol 5 mg a day. Follow-up in 2 weeks (4) Diabetes mellitus type 2 in obese: Comment: poorly controlled due to noncompliance with ADA diet Code(s): E11.69 - Type 2 diabetes mellitus with other specified complication; E66.9 - Obesity, unspecified Category: Medical Plan: A1c 9.7. ADA diet increase physical activity weight loss discussed with the patient. Continue metformin. Restart Mounjaro 2.5 mg weekly for a month then increase the dose depending on patient's tolerance. follow-up in 2 weeks (5) Anxiety: Code(s): F41.9 - Anxiety disorder, unspecified Category: Medical Plan: counseling was recommended. Increase fluoxetine to 40 mg today Orders: Orders Magnesium Today E83.42 - Hypomagnesemia AMB EKG-In Office Today I10 - Essential (primary) hypertension, R00.0 - Tachycardia, unspecified Referrals Cardiology Referral R00.0 - Tachycardia, unspecified Medications: New bisoprolol fumarate 5 mg PO DAILY 90 tabs 0RF fluoxetine 40 mg PO QAM 90 caps 0RF lisinopril 20 mg PO DAILY 60 tabs 0RF Discontinued lisinopril Discontinued Reason: Duplicate 30 mg PO DAILY 90 tabs 2RF fluoxetine Discontinued Reason: Doctor's Order 20 mg PO DAILY 90 tabs 3RF
--- OUTSIDE RECORDS SUMMARY | 2024-08-01 14:37 | XMS_ITS | Encounter Summary ---
Author Organization [facility] Address [address] [place] [address] Care Team Providers Care Compliance Technician Name Role Phone Mi Zamora MD Primary Care Provider [phone] Reason for Visit * Reason Comments Dizziness Flu sx for 3 days Encounter Details Date Type Department Care Team (Late st Contact Info) Description 07/27/2024 1:14 PM EDT - 07/27/2024 5:54 PM EDT Emergency [facility] [address] [place] [id number] Rivas Liu MD [address] [address] Dizziness (Primary Dx); Palpitations; Hypomagnesemia; Dehydration Discharge [...] sent through Care Everywhere. * Supraventricular Tachycardia (Mauritanian) * Holter Monitoring (Mauritanian) * Oral Rehydration (Mauritanian) * Magnesium Test (Mauritanian) documented in this encounter Medications at Time [...] Name Priority Date/Time Associated Diagnosis Comments ECG ANNOTATED 07/30/2024 ECG 12-LEAD STAT 07/27/2024 1:57 PM EDT [id number], RSV, FLU A AND B QUALITATIVE RT-PCR, INTERNAL LAB STAT 07/27/2024 1:47 PM EDT CBC WITH AUTO DIFFERENTIAL STAT 07/27/2024 1:29 PM EDT CBC AND DIFFERENTIAL STAT 07/27/2024 1:29 PM EDT MAGNESIUM STAT 07/27/2024 1:29 PM EDT BASIC METABOLIC PANEL STAT 07/27/2024 1:29 PM EDT documented in this encounter Results * ECG-Annotated (07/30/2024) us Provider Aminah DIAMOND ECG ORDERABLES Final Result * ECG 12 lead (07/27/2024 1:57 PM EDT) Ventricular Rate ECG 104 BPM GEMUSE Atrial Rate 104 BPM GEMUSE P-R Interval 160 ms GEMUSE QRS Duration 94 ms GEMUSE Q-T Interval 370 ms GEMUSE QTc 486 ms GEMUSE P Wave [place] 23 degrees GEMUSE R [place] 15 degrees GEMUSE T [place] 9 degrees GEMUSE ECG Interpretation Sinus tachycardia Nonspecific ST abnormality Abnormal ECG No previous ECGs available Confirmed by CHERELLE COX ([id number]) on 07/28/2024 2:38:48 PM GEMUSE 07/27/2024 1:57 PM EDT 07/28/2024 2:38 PM EDT us Rivas Liu MD ECG ORDERABLES Final Resul t GEMUSE * [id number], RSV, Influenza A and B qualitative RT-PCR (07/27/2024 1:47 PM EDT) Influenza A PCR Not Detected Not Detected LAB MICROBIOLOGY METHOD 07/27/2024 3:09 PM EDT [facility] Influenza B PCR Not Detected Not Detected LAB MICROBIOLOGY METHOD 07/27/2024 3:09 PM EDT [facility] RSV PCR Not Detected Not Detected LAB MICROBIOLOGY METHOD 07/27/2024 3:09 PM EDT [facility] SARS COV-2 Not Detected Not Detected LAB MICROBIOLOGY METHOD 07/27/2024 3:09 PM EDT [facility] Swab Both anterior nares / Unknown Non-blood Collection / Unknown 07/27/2024 1:47 PM EDT 07/27/2024 1:53 PM EDT Narrative [facility] - 07/27/2024 3:09 PM EDT Disclaimer: ??Testing was performed using the [employer] GeneXpert Xpress SARS-CoV-2 _Flu_RSV PLUS PCR assay. [...] for Healthcare providers can be found at https://www.fda.gov/media/342233/download. ?? Fact sheet for Healthcare patients can be found at https://www.fda.gov/media/483837/download. us Rivas Liu MD LAB MICROBIOLOGY - GENERAL ORDERABLES Final Result [facility] [address] [place] [address], * CBC auto differential (07/27/2024 1:29 PM EDT) WBC 5.8 4.8 - 10.8 K/mcL LAB HEMETOLOGY METHOD 07/27/2024 2:00 PM EDT [facility] RBC 4.40 3.80 - 4.80 M/mcL LAB HEMETOLOGY METHOD 07/27/2024 2:00 PM EDT [facility] Hemoglobin 12.7 11.5 - 16.0 g/dL LAB HEMETOLOGY METHOD 07/27/2024 2:00 PM EDT [facility] Hematocrit 38.3 35.0 - 47.0 % LAB HEMETOLOGY METHOD 07/27/2024 2:00 PM EDT [facility] MCV 87.0 79.0 - 98.0 FL LAB HEMETOLOGY METHOD 07/27/2024 2:00 PM EDT [facility] MCH 28.9 27.0 - 32.0 pcg LAB HEMETOLOGY METHOD 07/27/2024 2:00 PM EDT [facility] MCHC 33.2 32.0 - 37.0 g/dL LAB HEMETOLOGY METHOD 07/27/2024 2:00 PM EDT [facility] RDW 12.7 11.0 - 15.0 % LAB HEMETOLOGY METHOD 07/27/2024 2:00 PM EDT [facility] Platelets 367 130 - 400 K/mcL LAB HEMETOLOGY METHOD 07/27/2024 2:00 PM EDT [facility] MPV 9.4 7.0 - 11.0 FL LAB HEMETOLOGY METHOD 07/27/2024 2:00 PM [facility] NRBC 0.0 <1.0 % LAB [...] LAB HEMETOLOGY METHOD 07/27/2024 2:00 PM EDT [facility] Immature Granulocytes Absolute 0.02 0.00 - 0.03 K/mcL LAB HEMETOLOGY METHOD 07/27/2024 2:00 PM EDT [facility] Blood Venous blood specimen / Unknown Venipuncture / Unknown 07/27/2024 1:29 PM EDT 07/27/2024 1:54 PM EDT Rivas Liu MD LAB BLOOD ORDERABLES Final Result Performing Organization Address [facility]/ZIP Co de Phone Number [facility] [address] [place] [address], [place] [phone] * (ABNORMAL) Magnesium (07/27/2024 1:29 PM EDT) Magnesium 1.5(L) 1.9 - 2.6 mg/dL LAB CHEMISTRY METHOD 07/27/2024 2:21 PM EDT [facility] Blood Venous blood specimen / Unknown Venipuncture / Unknown 07/27/2024 1:29 PM EDT 07/27/2024 1:54 PM EDT Rivas Liu MD LAB BLOOD ORDERABLES Final Result Performing Organization Address [facility]/ZIP Co de Phone Number [facility] [address] [place] [address], [place] [phone] * (ABNORMAL) Basic metabolic panel (07/27/2024 1:29 PM EDT) Sodium 133 133 - 145 mmol/L LAB CHEMISTRY METHOD 07/27/2024 2:23 PM EDT [facility] Potassium 4.1 3.5 - 5.5 mmol/L LAB CHEMISTRY METHOD 07/27/2024 2:23 PM EDT [facility] Chloride 100 96 - 110 mmol/L LAB CHEMISTRY METHOD 07/27/2024 2:23 PM EDT [facility] CO2 23 21 - 32 mmol/L LAB CHEMISTRY METHOD 07/27/2024 2:23 PM EDT [facility] Anion Gap 10 3 - 11 LAB CHEMISTRY METHOD 07/27/2024 2:23 PM [facility] Glucose 342(H) 70 - 100 mg/dL LAB CHEMISTRY [facility]24 [facility] BUN 12 5 - 25 mg/dL LAB CHEMISTRY METHOD 07/27/2024 2:23 PM [facility] Creatinine 0.56 0.50 - 1.10 mg/dL LAB CHEMISTRY METHOD 07/27/2024 2:23 PM [facility] eGFR 103 >=60 mL/min/1. 73m2 LAB CHEMISTRY METHOD 07/27/2024 2:23 PM T [facility] Comment:Calculation based on the??Chronic Kidney Disease Epidemiology Collaboration (CKD-EPI) equation refit??without adjustment for race. BUN/Creatinine Ratio 21.4 LAB CHEMISTRY METHOD 07/27/2024 2:23 PM T [facility] Calcium 9.2 8.5 - 10.5 mg/dL LAB CHEMISTRY METHOD 07/27/2024 2:23 PM [facility] Blood Venous blood specimen / Unknown Venipuncture / Unknown 07/27/2024 1:29 PM EDT 07/27/2024 1:54 PM EDT us Rivas Liu MD LAB BLOOD ORDERABLES Final Result [facility] [address] [place] [address], documented in this encounter Visit Diagnoses Diagnosis [...] documented as of this encounter Care Teams Compliance Technician Relationship Specialty Start Date End Date Mi Zamora MD [address] [place] [address] PCP - General Internal Medicine 07/27/24 documented as of this encounter
--- OUTSIDE RECORDS SUMMARY | 2024-08-01 14:37 | XMS_ITS | Clinical Summary ---
Author Organization [facility] Address [address] [place] [address] Phone Care Team Providers Care Assistant Shift Supervisor Name Role Phone Mi Zamora MD Primary Care Provider [phone] Allergies Active Allergy Reactions Criticality Noted Date Comments Prochlorperazine Unknown 07/27/2024 Medications magnesium oxide (MAG-OX) 400 mg magnesium tablet Take 1 tablet (400 mg total) by mouth 2 (two) times a day for 5 days. 10 tablet 07/27/2024 Active Encounters Date Type Department Care Team Description 07/27/2024 1:14 PM EDT - 07/27/2024 5:54 PM EDT Emergency [facility] Emergency [address] [place] [address] Rivas Liu MD Dizziness (Primary [...] ECG 12-LEAD STAT 07/27/2024 1:57 PM EDT [id number], RSV, FLU A AND B QUALITATIVE RT-PCR, INTERNAL LAB STAT 07/27/2024 1:47 PM EDT CBC WITH AUTO DIFFERENTIAL STAT 07/27/2024 1:29 PM EDT MAGNESIUM STAT 07/27/2024 1:29 PM EDT BASIC METABOLIC PANEL STAT 07/27/2024 1:29 PM EDT CBC AND DIFFERENTIAL STAT 07/27/2024 1:29 PM EDT from Last 3 Months Results * ECG-Annotated (07/30/2024) Provider Onbase ECG ORDERABLES Final Result * ECG 12 lead (07/27/2024 1:57 PM EDT) Ventricular Rate ECG 104 BPM GEMUSE Atrial Rate 104 BPM GEMUSE P-R Interval 160 ms GEMUSE QRS Duration 94 ms GEMUSE Q-T Interval 370 ms GEMUSE QTc 486 ms GEMUSE P Wave [place] 23 degrees GEMUSE R [place] 15 degrees GEMUSE T [place] 9 degrees GEMUSE ECG Interpretation Sinus tachycardia Nonspecific ST abnormality Abnormal ECG No previous ECGs available Confirmed by CHERELLE COX ([id number]) on 07/28/2024 2:38:48 PM GEMUSE 07/27/2024 1:57 PM EDT 07/28/2024 2:38 PM EDT Rivas Liu MD ECG ORDERABLES Final Resul t GEMUSE * [id number], RSV, Influenza A and B qualitative RT-PCR (07/27/2024 1:47 PM EDT) [facility] Influenza A PCR Not Detected Not Detected LAB MICROBIOLOGY METHOD 07/27/2024 3:09 PM EDT [facility] Influenza B PCR Not Detected Not Detected LAB MICROBIOLOGY METHOD 07/27/2024 3:09 PM EDT [facility] RSV PCR Not Detected Not Detected LAB MICROBIOLOGY METHOD 07/27/2024 3:09 PM EDT [facility] SARS COV-2 Not Detected Not Detected LAB MICROBIOLOGY METHOD 07/27/2024 3:09 PM EDT [facility] Swab Both anterior nares / Unknown Non-blood Collection / Unknown 07/27/2024 1:47 PM EDT 07/27/2024 1:53 PM EDT [facility] - 07/27/2024 3:09 PM EDT Disclaimer: ??Testing was performed using the [employer] GeneXpert Xpress SARS-CoV-2 _Flu_RSV PLUS PCR assay. [...] for Healthcare providers can be found at https://www.fda.gov/media/980519/download. ?? Fact sheet for Healthcare patients can be found at https://www.fda.gov/media/922943/download. Rivas Liu MD LAB MICROBIOLOGY - GENERAL ORDERABLES Final Result [facility] [address] [place] [address], * CBC auto differential (07/27/2024 1:29 PM EDT) [facility] WBC 5.8 4.8 - 10.8 K/mcL LAB HEMETOLOGY METHOD 07/27/2024 2:00 PM EDT [facility] RBC 4.40 3.80 - 4.80 M/mcL LAB HEMETOLOGY METHOD 07/27/2024 2:00 PM EDT [facility] Hemoglobin 12.7 11.5 - 16.0 g/dL LAB HEMETOLOGY METHOD 07/27[facility]2024 [facility] Hematocrit 38.3 35.0 - 47.0 % LAB HEMETOLOGY METHOD 07/27/2024 2:00 PM [facility] MCV 87.0 79.0 - 98.0 FL LAB HEMETOLOGY METHOD 07/27/2024 2:00 PM [facility] MCH 28.9 27.0 - 32.0 pcg LAB HEMETOLOGY METHOD 07/27/2024 2:00 PM [facility] MCHC 33.2 32.0 - 37.0 g/dL LAB HEMETOLOGY METHOD 07/27/2024 2:00 PM [facility] RDW 12.7 11.0 - 15.0 % LAB HEMETOLOGY METHOD 07/27/2024 2:00 PM [facility] Platelets 367 130 - 400 K/mcL LAB HEMETOLOGY METHOD 07/27/2024 2:00 PM [facility] MPV 9.4 7.0 - 11.0 FL LAB HEMETOLOGY METHOD 07/27/2024 2:00 PM [facility] NRBC 0.0 <1.0 % LAB HEMETOLOGY METHOD 07/27/2024 2:00 PM [facility] NRBC Absolute 0.00 <0.10 K/mcL LAB HEMETOLOGY METHOD 07/27/2024 2:00 PM [facility] Neutrophils Relative 53.0 % LAB HEMETOLOGY METHOD 07/27/2024 2:00 PM [facility] Lymphocytes Relative 31.7 % LAB HEMETOLOGY METHOD 07/27/2024 2:00 PM [facility] Monocytes Relative 11.0 % LAB HEMETOLOGY METHOD 07/27/2024 2:00 PM [facility] Eosinophils Relative 3.1 % LAB HEMETOLOGY METHOD 07/27/2024 2:00 PM EDT [facility] Basophils Relative 0.9 % LAB HEMETOLOGY METHOD 07/27/2024 2:00 PM EDT [facility] Immature Granulocytes Relative 0.3 % LAB HEMETOLOGY METHOD 07/27/2024 2:00 PM EDT [facility] Neutrophils Absolute 3.07 1.50 - 7.00 K/mcL LAB HEMETOLOGY METHOD 07/27/2024 2:00 PM EDT [facility] Lymphocytes Absolute 1.84 1.00 - 5.00 K/mcL LAB HEMETOLOGY METHOD 07/27/2024 2:00 PM EDT [facility] Monocytes Absolute 0.64 0.20 - 1.00 K/mcL LAB HEMETOLOGY METHOD 07/27/2024 2:00 PM EDT [facility] Eosinophils Absolute 0.18 0.00 - 0.50 K/mcL LAB HEMETOLOGY METHOD 07/27/2024 2:00 PM EDT [facility] Basophils Absolute 0.05 0.00 - 0.20 K/mcL LAB HEMETOLOGY METHOD 07/27/2024 2:00 PM EDT [facility] Immature Granulocytes Absolute 0.02 0.00 - 0.03 K/mcL LAB HEMETOLOGY METHOD 07/27/2024 2:00 PM EDT [facility] Blood Venous blood specimen / Unknown Venipuncture / Unknown 07/27/2024 1:29 PM EDT 07/27/2024 1:54 PM EDT us Rivas Liu MD LAB BLOOD ORDERABLES Final Result [facility] [address] [place] [address], * (ABNORMAL) Magnesium (07/27/2024 1:29 PM EDT) Magnesium 1.5(L) 1.9 - 2.6 mg/dL LAB CHEMISTRY METHOD 07/27/2024 2:21 PM EDT [facility] Blood Venous blood specimen / Unknown Venipuncture / Unknown 07/27/2024 1:29 PM EDT 07/27/2024 1:54 PM EDT Rivas Liu MD LAB BLOOD ORDERABLES Final Result [facility] [address] [place] [address], [place] [phone] * (ABNORMAL) Basic metabolic panel (07/27/2024 1:29 PM EDT) [facility] Sodium 133 133 - 145 mmol/L LAB CHEMISTRY METHOD 07/27/2024 2:23 PM [facility] Potassium 4.1 3.5 - 5.5 mmol/L LAB CHEMISTRY METHOD 07/27/2024 2:23 PM [facility] Chloride 100 96 - 110 mmol/L LAB CHEMISTRY METHOD 07/27/2024 2:23 PM [facility] CO2 23 21 - 32 mmol/L LAB CHEMISTRY METHOD 07/27/2024 2:23 PM [facility] Anion Gap 10 3 - 11 LAB CHEMISTRY METHOD 07/27/2024 2:23 PM [facility] Glucose 342(H) 70 - 100 mg/dL LAB CHEMISTRY METHOD 07/27/2024 2:23 PM [facility] BUN 12 5 - 25 mg/dL LAB CHEMISTRY METHOD 07/27/2024 2:23 PM [facility] Creatinine 0.56 0.50 - 1.10 mg/dL LAB CHEMISTRY METHOD 07/27/2024 2:23 PM [facility] eGFR 103 >=60 mL/min/1. 73m2 LAB CHEMISTRY METHOD 07/27/2024 2:23 PM EDT [facility] Comment:Calculation based on the??Chronic Kidney Disease Epidemiology Collaboration (CKD-EPI) equation refit??without adjustment for race. BUN/Creatinine Ratio 21.4 LAB CHEMISTRY METHOD 07/27/2024 2:23 PM EDT [facility] Calcium 9.2 8.5 - 10.5 mg/dL LAB CHEMISTRY METHOD 07/27/2024 2:23 PM EDT [facility] Blood Venous blood specimen / Unknown Venipuncture / Unknown 07/27/2024 1:29 PM EDT 07/27/2024 1:54 PM EDT us Rivas Liu MD LAB BLOOD ORDERABLES Final Result [facility] [address] [place] [address], from Last 3 Months Insurance [facility] MEDICAID ADVANTAGE Care Teams Assistant Shift Supervisor Relationship Specialty Start Date End Date Mi Zamora MD [address] [place] [id number] PCP - General Internal Medicine 07/27/24
== END 2024-08-01 15:35 | disposition home or self-care (01) ==
LOC: HO.HMCC 13:22
PROVIDERS: PCP Internal Medicine; Visit Provider Internal Medicine
DX: E11.69 Type 2 diabetes mellitus with other specified complication (principal); R00.0 Tachycardia, unspecified; E66.9 Obesity, unspecified; Z68.39 Body mass index [BMI] 39.0-39.9, adult; E83.42 Hypomagnesemia; I10 Essential (primary) hypertension; F41.9 Anxiety disorder, unspecified

== ENCOUNTER → 2024-08-01 13:21 | Outpatient (BNVA) | payer OTHER, SELFPAY | PROVIDERS: PCP Internal Medicine; Visit Provider Internal Medicine | DX: R00.0 Tachycardia, unspecified (principal); E83.42 Hypomagnesemia; I10 Essential (primary) hypertension; E11.69 Type 2 diabetes mellitus with other specified complication; E66.9 Obesity, unspecified; Z68.39 Body mass index [BMI] 39.0-39.9, adult; F41.9 Anxiety disorder, unspecified; Z79.84 Long term (current) use of oral hypoglycemic drugs; Z79.899 Other long term (current) drug therapy | CPT/HCPCS: 96127 ==

== ENCOUNTER 2024-09-11 09:56 | Outpatient (AMB) | payer OTHER, SELFPAY ==
--- NOTE | 2024-09-11 10:09 | A.OFFPC_ITS ---
Vital Signs 09/11/24 10:12 Height 5 ft 3 in Weight 207 lb BMI 36.7 BP 118/84 Blood Pressure Location Lt brachial Position Sitting Respiration 20 Pulse 107 H Pulse Source Pulse Oximeter Temp 98.4 F Temp Source Oral Pulse Oximetry (%) 96 Oxygen Delivery Method Room Air Intake Visit Reasons: Diabetes F/U Intake Note: Pt is here today for a follow up visit on DM. Allergies prochlorperazine [From Compazine] Allergy (Unknown, Verified 09/11/24 10:12) muscle reaction Medication List - Last Reconciled 09/11/24 by Mi Zamora MD bisoprolol fumarate 5 mg PO DAILY compress.stocking,knee,reg,lrg As directed flash glucose sensor (registracija vozilaStyle Marky 14 Day Sensor kit) As directed fluoxetine 40 mg PO QAM lisinopril 20 mg PO DAILY metformin ER 1,000 mg (2 x 500 mg) PO BID naratriptan take 1 tab at onset of headache; if no relief may repeat 1 tab after at least 4 hrs; max = 2 tabs/24 hrs PO tirzepatide (Mounjaro) 2.5 mg (0.5 mL) subcut QWEEK valacyclovir 500 mg PO BID Tobacco use date assessed: 09/11/24 Dental Screening Dental Screen Date: 09/11/24 Did you have a dental visit in the last 12 months?: Yes Did you have a dental problem in the last 6 months where you did not have access to dental care?: No Was dental information given to patient?: Patient has dentist HPI Diabetes F/U HPI Details Patient presents with a follow-up of hypertension and type 2 diabetes. She has been tolerating Mounjaro well and lost 15 lb in the 6 weeks. She would like to increase the dose. Patient reports following ADA diet but has not been checking her blood blood glucose regularly. Hypertension has been controlled on 40 mg of lisinopril. 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 Housing: House Patient Tobacco Use Status: Never used Tobacco e-Cigarette/Vaping Use: Never Used service: No Current occupational status: employed Cognitive needs: No Hearing needs: No Vision needs: Yes Questionnaire Thrive Questionnaire Date Thrive assessed: 05/13/24 I am a: Patient What is your living situation today?: I choose not to answer this question Within the past 12 months, did the food you bought not last and you didn't have the money to get more?: I choose not to answer this question Within the past 12 months, did you worry whether your food would run out before you got money to buy more?: I choose not to answer this question Do you have trouble paying for medicines?: I choose not to answer this question Do you have trouble getting transportation to medical appointments?: I choose not to answer this question Do you have trouble paying your heating and electricity bill?: I choose not to answer this question Do you have trouble taking care of your child, family member or friend?: I choose not to answer this question Do you have trouble with day-to-day activities such as bathing, preparing meals, shopping, managing finances, etc.?: I choose not to answer this question Are you currently unemployed and looking for a job?: I choose not to answer this question Are you interested in more education?: I choose not to answer this question Please select the resources that you would like help with: None Currently or been in a relationship where the following occur: I choose not to answer THRIVE Score: 0 NASIMA-7 AMB Questionnaire NASIMA-7 Date NASIMA - 7 assessed: 05/14/24 Source: Developed by Drs. Marbin Cherry, Judy Van, Elton Li and colleagues, with an educational ben from [email or web address]. Review of Systems Const All systems reviewed & are unremarkable except as noted in HPI and below Eyes Reports no additional complaints ENT Reports no additional complaints Card Reports no additional complaints Resp Reports no additional complaints GI Reports no additional complaints Reports no additional complaints Physical exam (Primary Care) Vital Signs: Last Vital Signs Temp 98.4 F 09/11/24 10:12 Pulse 107 H 09/11/24 10:12 Resp 20 09/11/24 10:12 BP 118/84 09/11/24 10:12 Pulse Ox 96 09/11/24 10:12 Oxygen Delivery Method Room Air 09/11/24 10:12 BMI result Body Mass Index 36.7 Tobacco/Smoking Status: Tobacco use Status Tobacco use date assessed 09/11/24 09/11/24 10:13 Patient Tobacco Use Status Never used Tobacco 09/11/24 10:13 e-Cigarette/Vaping Use Never Used 09/11/24 10:10 Thrive Assessment: Date of Thrive Assessment Date Thrive assessed 05/13/24 09/11/24 10:10 Currently or been in a relationship where the following occur: I choose not to answer Const General: no acute distress HENMT Head: Yes normal to inspection Eyes General: appearance normal, both eyes and all related structures Resp Effort & Inspection: normal respiratory effort Auscultation: clear to auscultation bilaterally Cardio Rhythm: regular rhythm Heart sounds: S1 normal heart sound present and S2 normal heart sound present Coding Level of Care Code Est Pt Level 4 (51241) Diagnoses HTN (hypertension) I10 Diabetes mellitus type 2 in obese E11.69; E66.9 Assessment & Plan Assessment & Plan (1) HTN (hypertension): Code(s): I10 - Essential (primary) hypertension Category: Medical Plan: Continue 40 mg of lisinopril (2) Diabetes mellitus type 2 in obese: Comment: poorly controlled due to noncompliance with ADA diet Code(s): E11.69 - Type 2 diabetes mellitus with other specified complication; E66.9 - Obesity, unspecified Category: Medical Plan: Continue ADA diet increase physical activity, continue metformin and increase Mounjaro to 5 mg weekly Orders: Orders Comprehensive [place]. Panel Fast 2 Months E11.69 - Type 2 diabetes mellitus with other specified complication, E66.9 - Obesity, unspecified, I10 - Essential (primary) hypertension Complete Blood Count Auto Diff 2 Months E11.69 - Type 2 diabetes mellitus with other specified complication, E66.9 - Obesity, unspecified, I10 - Essential (primary) hypertension Hemoglobin A1c 2 Months E11.69 - Type 2 diabetes mellitus with other specified complication, E66.9 - Obesity, unspecified, I10 - Essential (primary) hypertension Basic Metabolic Panel Today I10 - Essential (primary) hypertension Magnesium Today I10 - Essential (primary) hypertension Lipid Panel 2 Months E11.69 - Type 2 diabetes mellitus with other specified complication, E66.9 - Obesity, unspecified, I10 - Essential (primary) hypertension Microalbumin, Random (w Creat) 2 Months E11.69 - Type 2 diabetes mellitus with other specified complication, E66.9 - Obesity, unspecified, I10 - Essential (primary) hypertension Medications: New Mounjaro (tirzepatide) 5 mg (0.5 mL) subcut QWEEK 2 mL 0RF NS Mounjaro (tirzepatide) 5 mg (0.5 mL) subcut QWEEK 2 mL 0RF NS Changed From lisinopril 20 mg PO DAILY 60 tabs 0RF To lisinopril 40 mg (2 x 20 mg) PO DAILY 60 tabs 2RF Refilled lisinopril 20 mg PO DAILY 60 tabs 0RF Discontinued tirzepatide (Mounjaro) Discontinued Reason: Doctor's Order 2.5 mg (0.5 mL) subcut QWEEK 6 mL 1RF bisoprolol fumarate Discontinued Reason: Doctor's Order 5 mg PO DAILY 90 tabs 0RF fluoxetine Discontinued Reason: Doctor's Order 40 mg PO QAM 90 caps 0RF
[2024-09-11 10:12] VITALS: BP 118/84; PULSE 107; RESP 20; TEMP 36.9; O2SAT 96; BMI 36.7
--- OUTSIDE RECORDS SUMMARY | 2024-09-11 11:12 | XMS_ITS | Patient Health Record ---
Author Organization [facility] Leroy Address [address] [place] [address] Care Team Providers Care Tassel Clipper Name Role Phone Ulises Fraire MD Primary Care Provider Unavail able Peter Duenas Unavailable [phone] Allergies Allergen (clinical drug ingredient) Drug/Non Drug Allergy documented on EMR Reaction Allergy Type Onset Date Status Compazine Unknown Drug Allergy Active Reason For Referral No Information Medications Medication SIG (Take, Route, Fr equency, Duration) Notes Start Date End Date Status metFORMIN HCl 1000 MG 1 tablet with meal s Orally Twice a day Active Lisinopril 5 MG 1 tablet Orally Once a day Active Problems Problem Type SNOMED Code ICD Code Onset Dates Problem Status W/U Status Risk Notes Problem Bursitis (30602726) Bursitis (727.3) Active confirmed Problem Type II diabetes mellitus without complication (836662991) Diabetic - NIDDM (250.00) Active confirmed Problem Congenital pes planus (20080489) Flat Foot, Congenital (754.61) Active confirmed Problem Pain in limb (63410210) Pain in Limb (729.5) Active confirmed Problem Plantar fasciitis (137132022) Plantar Fasciitis (728.71) Active confirmed Problem Calcaneal spur (44620754) Calcaneal spur (726.73) Active confirmed Plan Of Treatment Pending Test Test Name Order Date X ray : Foot, left 2V 01/30/2014 Insurance Providers Payer Name Payer Address Payer Phone Subscriber Number Group Number Insured Name Patient Relationship to Insured Coverage Start Date Coverage End Date [facility] [address] [place] [address] [phone] [id number] Sudha Nunn Self - patient is the insured Medical (General) History Medical History History ICD Code type II diabetes High blood pressure
== END 2024-09-11 11:29 | disposition home or self-care (01) ==
LOC: HO.HMCC 09:56
PROVIDERS: PCP Internal Medicine; Visit Provider Internal Medicine
DX: I10 Essential (primary) hypertension (principal); E11.69 Type 2 diabetes mellitus with other specified complication; E66.9 Obesity, unspecified; Z68.36 Body mass index [BMI] 36.0-36.9, adult

== ENCOUNTER 2024-09-11 09:56 | Outpatient (REF) | payer OTHER, SELFPAY ==
[2024-09-11 13:44] LABS: Anion Gap 14 (12-20); Blood Urea Nitrogen 13 mg/dL (9-16); Calcium 9.8 mg/dL (8.4-10.2); Carbon Dioxide 28 mmol/L (22-29); Chloride 103 mmol/L (96-108); Estimated Glomerular Filt Rate > 60; Glucose Random 121 mg/dL (60-115); Magnesium 1.7 mg/dL (1.6-2.6); Potassium 4.5 mmol/L (3.3-5.1); Sodium 140 mmol/L (135-145)
== END 2024-09-11 09:57 | disposition home or self-care (01) ==
LOC: HO.HMGCLDS 09:56
PROVIDERS: PCP Internal Medicine; Visit Provider Internal Medicine
DX: I10 Essential (primary) hypertension (principal)
CPT/HCPCS: 36415; 80048; 83735